=== PATIENT | female | born 1950 | race Caucasian/White ===

== ENCOUNTER 2022-02-22 18:07 | Inpatient (IN) | payer MEDICARE, SELFPAY ==
[2022-02-22] VITALS (10 sets, daily range): BP systolic 112–169; BP diastolic 57–79; PULSE 88–105; RESP 16–28; TEMP 36.9–38.9; O2SAT 92–95; BMI 28.8; BMI 29.0
--- NOTE | 2022-02-22 18:21 | CT_ITS ---
EXAM: CT HEAD WITHOUT INTRAVENOUS CONTRAST CLINICAL INDICATION: ams TECHNIQUE: Multiple axial images were obtained of the head without intravenous contrast. This CT exam was performed using one or more of the following dose reduction techniques: automated exposure control, adjustment of the mA and/or kV according to patient size, and/or use of iterative reconstruction technique. This report was created using [employer] report generation technology. COMPARISON: None. FINDINGS: BRAIN AND EXTRA-AXIAL SPACES: Unremarkable. No intra- or extra-axial hemorrhage. No evidence of acute infarct. No intracranial mass or mass effect. There is preservation of the kerns/white matter interface. Posterior fossa structures are unremarkable. Ventricles are appropriate for age. No hydrocephalus. Basal cisterns are patent. BONES/JOINTS: Unremarkable. No discrete lytic or blastic abnormalities. SINUSES: There is near total consolidation of the right maxillary sinus. MASTOID AIR CELLS: Unremarkable. Clear. ORBITS: Visualized globes, extraocular muscles, optic nerves and retrobulbar fat appear unremarkable. CT/Brain/Head without Contrast IMPRESSION: No acute findings in the head/brain. Electronically Signed: Loc Johnson MD at 19:50 EDT ,
--- NOTE | 2022-02-22 18:21 | EKG12_ITS ---
Test Reason : Fever Blood Pressure : / mmHG Vent. Rate : 105 BPM Atrial Rate : 105 BPM P-R Int : 158 ms QRS Dur : 098 ms QT Int : 330 ms P-R-T Axes : 055 053 038 degrees QTc Int : 436 ms Sinus tachycardia Otherwise normal ECG Confirmed by POLLO DONATO, ESTHER ([id number]), editor managing director ART MARES ([id number]) on 02/27/2022 11:10:11 AM Referred By: Tom Confirmed By:TASIA ABAD MD
--- NOTE | 2022-02-22 18:27 | EDS_ITS ---
HPI History of Present Illness Chief Complaint: Fever Informant: patient, family and EMS Narrative Narrative: 71-year-old female presenting to the emergency room with fever and confusion. Patient has had a fever since Sunday. She also notes a cough headache rhin orrhea sore throat. Family states that she seemed to be doing pretty good until today when they came home this afternoon and found her to be confused. Patient notes that she is not thinking well. She cannot provide much basic history but he states she has a history of cirrhosis diabetes and COPD. She notes her cough is nonproductive. She does not use supplemental oxygen. She has been taking Tylenol for fever but cannot tell me the last time she took 1. [facility] Medical History Asthma COPD (chronic obstructive pulmonary disease) Diabetes Hypertension Liver cirrhosis Allergy/AdvReac Type Severity Reaction Status Date / Time No Known Allergies Allergy Verified 02/22/22 18:08 Social History (Updated 02/22/22 @ 18:[address] Josse Santos DO) Smoking Status: Never smoker substance use type: does not use ROS ROS ED Constitutional Constitutional ED: Reports fever(s); Denies chills or weight loss Eyes Eyes: Denies change in vision or diplopia ENT ENT ED: Reports rhinorrhea and sore throat; Denies ear pain Cardiovascular Cardiovascular: Denies chest pain, orthopnea, palpitations or racing heartbeat Respiratory/Chest Respiratory/Chest: Reports cough and dyspnea; Denies orthopnea Gastrointestinal Gastrointestinal: Denies abdominal pain, diarrhea, nausea or vomiting Genitourinary Genitourinary ED: Denies dysuria, hematuria or urinary frequency Musculoskeletal Musculoskeletal: Denies arthralgias or myalgias Integumentary Denies abscess or rash Neurologic Neurologic: Reports headache(s) and other Details: Confusion ; Denies weakness Psychiatric Psychiatric: Denies anxiety, depression, suicidal ideation or suicidal thoughts Endocrine Endocrinology: Denies polydipsia, polyphagia or polyuria Allergic/Immunologic Allergic/Immunologic ED: Denies mouth swelling, tongue swelling or urticaria EXAM Physical Exam Const Vital Signs: 02/22/22 18:08 02/22/22 18:21 02/22/22 19:21 Temperature 102.0 F H Temperature Source Temporal Pulse Rate 105 H 104 H 95 Respiratory Rate 24 H 21 H 22 H Respiratory Effort Respiratory Pattern Blood Pressure 169/79 H 161/78 H 134/63 H Blood Pressure Mean 109 105 86 Pulse Ox 92 92 92 Oxygen Delivery Method Nasal Cannula Room Air Room Air 02/22/22 19:57 02/22/22 20:41 02/22/22 20:10 Temperature 99.7 F H 99.7 F H Temperature Source Oral Oral Pulse Rate 92 Respiratory Rate 16 Respiratory Effort Normal Non-Labored Respiratory Pattern Tachypnea Blood Pressure 121/57 H Blood Pressure Mean 78 Pulse Ox 95 Oxygen Delivery Method Room Air 02/22/22 20:00 02/22/22 21:01 Temperature Temperature Source Pulse Rate 97 91 Respiratory Rate 28 H Respiratory Effort Respiratory Pattern Blood Pressure 128/73 H Blood Pressure Mean 91 Pulse Ox 94 Oxygen Delivery Method Room Air Positive well nourished, well developed and obese General Appearance ED: well developed Nutritional Appearance: obese HEENT Reports normocephalic, head/scalp atraumatic and moist mucous membranes Eyes PERRL and EOMs intact bilaterally Neck no lymphadenopathy, supple and no JVD Resp normal respiratory effort and clear to auscultation bilaterally Cardio regular rate, regular rhythm and no murmurs GI normal to inspection, nondistended, normoactive bowel sounds and non-tender Palpation: soft Back/Spine no CVA tenderness and normal ROM Extremity normal to inspection General Extremety ED: Negative for edema General Extremity: Negative for edema Neuro CN's II-XII intact bilaterally Neuro Narrative: Patient has difficulty finding words. I do not appreciate slurred speech. Sensorium / Orientation: alert and orientation impaired Motor Exam: strength 5/5 throughout Psych Mood & Affect: Negative for depressed or tearful Skin no rashes or lesions noted and no wounds MDM MDM MDM Narrative Medical decision making narrative: Patient received IV fluids and Tylenol. Sepsis blood work was obtained. White count is 9.5. Lactic acid 1.4. CMP showed a slight elevation in bilirubin. Urinalysis is normal. Rapid COVID and influenza are negative. My interpretation of the chest x-ray is no acute process. CT of the brain is normal. A COVID PCR was sent. Patient received Tylenol and fluids. Fever is down heart rate is down blood pressure is down. I do not see evidence of meningitis. She has no photophobia. She is awake and talking but slow to find what she is trying to say. At this point we are going to wait a viral panel and a COVID PCR. I will speak with the hospitalist regarding admission Lab Data Attestation: I reviewed the patient's lab results. Labs: Laboratory Results - last 24 hr 02/22/22 02/22/22 02/22/22 18:21 18:36 18:36 WBC 9.5 RBC 4.27 Hgb 12.4 Hct 36.8 L MCV 86.2 MCH 29.0 MCHC 33.7 RDW Std Deviation 46.3 H RDW Coeff of Paco 14.8 H Plt Count 146 L MPV 12.3 H Immature Gran % (Auto) 0.600 Neut % (Auto) 69.3 Lymph % (Auto) 17.7 L [place] % (Auto) 11.8 H Eos % (Auto) 0.1 Baso % (Auto) 0.5 Absolute Neuts (auto) 6.6 Absolute Lymphs (auto) 1.68 Nucleated RBC % 0 PT 15.3 H INR 1.2 APTT 35.6 Sodium Potassium Chloride Carbon Dioxide Anion Gap BUN Creatinine Estim Creat Clear Calc Est GFR (MDRD) Af Amer Est GFR (MDRD) Non-Af BUN/Creatinine Ratio Glucose Lactic Acid 1.4 Calcium Total Bilirubin AST ALT Alkaline Phosphatase Troponin I High Sens Total Protein Albumin Globulin Albumin/Globulin Ratio Urine Color Urine Clarity Urine pH Ur Specific [place] Urine Protein Urine Glucose (UA) Urine Ketones Urine Occult Blood Urine Nitrite Urine Bilirubin Urine Urobilinogen Ur Leukocyte Esterase Urine RBC Urine WBC Ur Squamous Epith Cells Urine Bacteria Urine Mucus 02/22/22 02/22/22 18:36 19:50 WBC RBC Hgb Hct MCV MCH MCHC RDW Std Deviation RDW Coeff of Paco Plt Count MPV Immature Gran % (Auto) Neut % (Auto) Lymph % (Auto) [place] % (Auto) Eos % (Auto) Baso % (Auto) Absolute Neuts (auto) Absolute Lymphs (auto) Nucleated RBC % PT INR APTT Sodium 131 L Potassium 4.9 Chloride 99 Carbon Dioxide 25.0 Anion Gap 7 BUN 13 Creatinine 0.87 Estim Creat Clear Calc 42.60 Est GFR (MDRD) Af Amer 83 Est GFR (MDRD) Non-Af 68 BUN/Creatinine Ratio 15.0 Glucose 136 H Lactic Acid Calcium 9.4 Total Bilirubin 1.40 H AST 56 H ALT 42 Alkaline Phosphatase 113 Troponin I High Sens 21 Total Protein 8.5 H Albumin 3.3 Globulin 5.2 H Albumin/Globulin Ratio 0.6 L Urine Color [place] Urine Clarity Clear Urine pH 7.0 Ur Specific [place] 1.010 Urine Protein 100 H Urine Glucose (UA) Normal Urine Ketones Negative Urine Occult Blood 50 H Urine Nitrite Negative Urine Bilirubin Negative Urine Urobilinogen 4 H Ur Leukocyte Esterase Negative Urine RBC 0-5 SEEN Urine WBC 0 SEEN Ur Squamous Epith Cells 0 SEEN Urine Bacteria 0 SEEN Urine Mucus 0 SEEN Radiography Diagnostic Testing: Clinical Impression(s) from Imaging Studies Brain CT 02/22/22 18:21 IMPRESSION: No acute findings in the head/brain. Electronically Signed: Loc Johnson MD at 19:50 EDT , Chest X-Ray 02/22/22 19:00 IMPRESSION: No radiographic evidence of acute cardiopulmonary disease. Electronically Signed: Loc Johnson MD at 19:47 EDT , EKG Initial EKG: Attestation: I personally reviewed and interpreted this EKG as follows: Comments: Sinus tachycardia with a ventricular rate of 105 bpm Discharge Plan Dx/Rx/DC Orders Clinical Impression: Acute alteration in mental status, Fever of unknown origin (FUO), Cirrhosis of liver, COPD (chronic obstructive pulmonary disease) Disposition Disposition: Acute Care [facility]
[2022-02-22] MEDS: 0.9% Normal Saline 1,000 ML 250 ML IV (18:39)
[2022-02-22] MEDS: Acetaminophen 500 MG Tablet 1000 MG PO (18:39)
[2022-02-22 18:50] LABS: Absolute Lymphocyte Count 1.68 X10^3/uL (0.83-4.51); Absolute Neutrophil Count 6.6 X10^3/uL (2.0-7.7); Basophil# 0.05 X10^3/uL; Basophil% 0.5 % (0-1); Eosinophil# 0.01 X10^3/uL; Eosinophils% 0.1 % (0-5); Hematocrit 36.8 % (37-47); Hemoglobin 12.4 g/dL (12.0-15.0); Lymphocyte # 1.68 X10^3/ul (0.83-4.51); Lymphocyte % 17.7 % (19-41); Mean Corp Hgb Conc 33.7 g/dL (32-36); Mean Corpuscular Volume 86.2 fL (81-99); Mean Platelet Vol. 12.3 fl (6.2-12.0); Monocyte# 1.12 X10^3/uL; Monocyte% 11.8 % (0-10); NRBC Flagged by Analyzer 0 % (0-5); Neutrophil # 6.59 X10^3/uL (2.7-7.7); Neutrophil % 69.3 % (47-70); Platelet Count 146 K/mm3 (150-450); RBC Distribution Width CV 14.8 % (11.6-14.6); RBC Distribution Width SD 46.3 fl (35.1-43.9); Red Blood Count 4.27 M/mm3 (4.2-5.4); White Blood Count 9.5 K/mm3 (4.4-11.0)
[2022-02-22 18:57] LABS: International Normalized Ratio 1.2; Prothrombin Time (Protime)PT. 15.3 SECONDS (11.7-14.9)
[2022-02-22 18:59] LABS: Partial Thromboplast Time 35.6 Seconds (24.1-36.2)
--- NOTE | 2022-02-22 19:00 | RAD_ITS ---
EXAM: XR CHEST, 1 VIEW CLINICAL INDICATION: fever and cough TECHNIQUE: Frontal view of the chest. This report was created using [employer] report generation technology. COMPARISON: None. FINDINGS: LUNGS AND PLEURAL SPACES: Unremarkable. No consolidation or edema. No pneumothorax. No effusion. HEART: Unremarkable. Cardiac silhouette not enlarged. MEDIASTINUM: Central airways and mediastinal contour are unremarkable. BONES/JOINTS: Unremarkable. SOFT TISSUES: Unremarkable. RAD/Chest 1 View (Portable) IMPRESSION: No radiographic evidence of acute cardiopulmonary disease. Electronically Signed: Loc Johnson MD at 19:47 EDT ,
[2022-02-22 19:11] LABS: ALB/GLOB Ratio 0.6 RATIO (0.9-2.4); AST(SGOT) 56 U/L (15-37); Alanine Aminotransfer ALT/SGPT 42 U/L (13-56); Albumin, Serum 3.3 g/dL (3.2-5.0); Alkaline Phosphatase 113 U/L (45-117); Anion Gap 7 (5-15); BUN 13 mg/dL (7-18); Calcium,Total 9.4 mg/dL (8.5-10.1); Chloride 99 mmol/L (98-107); Creatinine, Serum 0.87 mg/dL (0.55-1.02); EST Glomerular Filtration Rate 68 mL/min (>60); Est Glom Filt Rate - Afr Amer 83 mL/min (>60); Globulin 5.2 g/dL (2.2-4.2); Glucose 136 mg/dL (74-106); Potassium 4.9 mmol/L (3.5-5.1); Protein, Total 8.5 g/dL (6.4-8.2); Sodium Level 131 mmol/L (136-145); Troponin-I HS 21 pg/mL (3.0-54.0)
[2022-02-22 19:22] LABS: Lactic Acid 1.4 mmol/L (0.4-1.9)
[2022-02-22 19:56] LABS: Bacteria 0 SEEN /hpf (None Seen); Mucous, Urine 0 SEEN /hpf (<or=2+); Squamous Epithelial Cells - UA 0 SEEN /hpf (5-10); White Blood Cells 0 SEEN /hpf (0-5)
[2022-02-22 19:58] LABS: Color, Urine Amber (Yellow); Glucose, Dipstick Normal (Normal); Ketone-Dipstick Negative (Negative); Leukocyte Esterase-Dipstick Negative /ul (Negative); Nitrite-Dipstick Negative (Negative); Occult Blood-Urine 50 /ul (Negative); Protein-Dipstick 100 mg/dl (Negative); Urine Bilirubin Dipstick Negative (Negative); Urine Clarity Clear (Clear); Urine Urobilinogen 4 mg/dl (Normal)
[2022-02-22 20:27] LABS: Red Blood Cells-Urine 0-5 SEEN /hpf (0-5)
--- NOTE | 2022-02-22 21:30 | HP.PCM.HOS_ITS ---
HPI - General General Date of Admission: 02/22/22 Date of Service: 02/22/22 Chief Complaint: Confusion, recent viral URI symptoms. HPI Narrative The patient is a 71 y/o F w/ PMHx: COPD, Former tobacco use, LUNA/Cirrhosis, HTN, HLD, Diabetes mellitus type II, Obesity who presents to the [facility] ED on 02/22/22 with history of onset on 02/17/2022 fatigue, malaise, decreased appetite, mild generalized throbbing headache, dry cough, rhinorrhea, sore throat and elevated temperatures at home up to 102 with onset over the last 48 hours increased episodes of confusion which family does report is primarily when she is febrile however given not improving status prompted ED evaluation. She denies any nausea, emesis or diarrhea or any abdominal cramping. She is not vaccinated against COVID and is unaware of any recent exposure but does not take any kind of precautions. Work-up in the ED included T102, heart rate 105, BP 169/79, respiratory rate 24, 92% on room air, CBC with WC 9.5, hemoglobin 12.4, platelet 146 without marked shift, unremarkable coags, CMP with sodium 131, glucose 136, lactic acid 1.4, T bili 1.40, AST/ALT 56/42, alk phos 113, ammonia 16, troponin 21, hepatic profile not marked appearing otherwise, urinalysis with no obvious evidence of UTI, urine culture pending per ED, blood culture pending per ED, rapid COVID antigen negative with pending COVID PCR. In the ED patient administered Tylenol. [facility] Medical History (Updated 02/22/22 @ 22:32 by Vishal Moser) Asthma COPD (chronic obstructive pulmonary disease) Diabetes Ex-smoker Hyperlipemia Hypertension Liver cirrhosis Home Medications atorvastatin 10 mg tablet 10 mg PO QHS cholesterol 02/22/22 [History Last Taken 02/21/22] carvedilol 25 mg tablet 25 mg PO BID blood pressure 02/22/22 [History Last Taken 02/22/22] cholecalciferol (vitamin D3) 50 mcg (2,000 unit) tablet (Vitamin D3) 1 tab PO DAILY supplement 02/22/22 [History Last Taken 02/22/22] diltiazem HCl 240 mg capsule,extended release 24 hr, controlled 240 mg PO DAILY heart 02/22/22 [History Last Taken 02/22/22] lisinopril 40 mg tablet 40 mg PO DAILY blood pressure 02/22/22 [History Last Taken 02/22/22] magnesium amino acid chelate 100 mg tablet 400 mg PO DAILY supplement 02/22/22 [History Last Taken 02/22/22] metformin 1,000 mg tablet 1,000 mg PO BID diabetes 02/22/22 [History Last Taken 02/22/22] omeprazole 20 mg capsule,delayed release 20 mg PO DAILY GERD 02/22/22 [History Last Taken 02/22/22] spironolactone 25 mg tablet 25 mg PO DAILY diuretic 02/22/22 [History Last Taken 02/22/22] Allergy/AdvReac Type Severity Reaction Status Date / Time Penicillins Allergy Hives Verified 02/22/22 22:21 prednisone Allergy Anaphylaxis Verified 02/22/22 22:21 Family History (Updated 02/22/22 @ 23:[address] Rabia Franklin MD) Mother Diabetes Father Heart disease Surgical History (Updated 02/22/22 @ 22:32 by Vishal Moser) Hx of tonsillectomy Social History (Updated 02/22/22 @ 23:[address] Rabia Franklin MD) household members: family and other details: Her son and her grandson live with her. Smoking Status: Former smoker how long ago did patient quit smoking: Quit at age 50, smoked ~ 1 ppd since teen until quit. alcohol intake: never substance use type: does not use ROS ROS Narrative Admission Review of Systems: CONSTITUTIONAL: No weight loss, chills, + fever, weakness or fatigue. HEENT: + [place], rhinorrhea, sore throat. Eyes: No visual loss, blurred vision, double vision or yellow sclerae. Ears, Nose, Throat: No hearing loss, sneezing. SKIN: No rash or itching, lesions, wounds. CARDIOVASCULAR: No chest pain, chest pressure or chest discomfort, palpitations, edema, orthopnea, syncopal events. RESPIRATORY: + Cough, dry, No shortness of breath, sputum, wheezing, hemoptysis. GASTROINTESTINAL: + anorexia, No nausea, vomiting or diarrhea, abdominal pain, melena, BRBPR. GENITOURINARY: No dysuria, frequency, urgency or retention. NEUROLOGICAL: + headache, confusion, No dizziness, syncope, paralysis, ataxia, numbness or tingling in the extremities, focal weakness, change in bowel or bladder control, seizure. MUSCULOSKELETAL: + muscle, back pain, joint pain or stiffness. HEMATOLOGIC: No anemia, bleeding or bruising. LYMPHATICS: No enlarged nodes. No history of splenectomy. PSYCHIATRIC: No history of depression or anxiety. ENDOCRINOLOGIC: + reports of sweating, cold or heat intolerance. No polyuria or polydipsia. ALLERGIES: + history of rhinitis. Vital Signs Vital Signs Vital Signs: 02/22/22 18:08 02/22/22 18:21 02/22/22 19:21 Temperature 102.0 F H Temperature Source Temporal Pulse Rate 105 H 104 H 95 Respiratory Rate 24 H 21 H 22 H Respiratory Effort Respiratory Pattern Blood Pressure 169/79 H 161/78 H 134/63 H Blood Pressure Mean 109 105 86 Pulse Ox 92 92 92 Oxygen Delivery Method Nasal Cannula Room Air Room Air 02/22/22 19:57 02/22/22 20:41 02/22/22 20:10 Temperature 99.7 F H 99.7 F H Temperature Source Oral Oral Pulse Rate 92 Respiratory Rate 16 Respiratory Effort Normal Non-Labored Respiratory Pattern Tachypnea Blood Pressure 121/57 H Blood Pressure Mean 78 Pulse Ox 95 Oxygen Delivery Method Room Air 02/22/22 20:00 02/22/22 21:01 Temperature Temperature Source Pulse Rate 97 91 Respiratory Rate 28 H Respiratory Effort Respiratory Pattern Blood Pressure 128/73 H Blood Pressure Mean 91 Pulse Ox 94 Oxygen Delivery Method Room Air Weight Weight: 147 lb 11.355 oz Body Mass Index (BMI) 28.8 Physical Exam Narrative Physical Examination: General: Awake, alert, oriented to person, place, president, eventually correct month and year but took a little longer to respond, fatigued, ill-appearing but in no distress. Skin: Normal color, normal turgor, no icterus, no cyanosis. HEENT: AT/NC, EOMI, PERRLA, dry MM, no carotid bruits or JVD noted. Lungs: Mildly diminished, greater bases, appropriate effort, no rales, ronchi or wheezing. Heart: Tachycardic with regular rhythm; no gallop, rub audible. Abdomen: Soft, NTTP, ND, distant mildly hyperactive BS, no HSM. Extremities: No cyanosis, clubbing, or edema. Neurological: Patient awake, alert, oriented as noted, cognitive function impr hany since initial ED arrival, now that fever down, less tachycardic family does report that she seems more towards her baseline intact; pupils equally reactive to light and accommodation, cranial nerves II-XII grossly normal, moving all 4 extremities, no focal deficits, strength mildly to moderately global decrease secondary to acute illness. Psychiatric: Affect appears fatigued, no acute evidence of depressive or anxiety feelings. Results Lab / Micro Data Result Diagrams: 02/22/22 18:36 02/22/22 18:36 Labs: Laboratory Results - last 24 hr 02/22/22 18:21: Lactic Acid 1.4 02/22/22 18:36: WBC 9.5, RBC 4.27, Hgb 12.4, Hct 36.8 L, MCV 86.2, MCH 29.0, MCHC 33.7, RDW Std Deviation 46.3 H, RDW Coeff of Paco 14.8 H, Plt Count 146 L, MPV 12.3 H, Immature Gran % (Auto) 0.600, Neut % (Auto) 69.3, Lymph % (Auto) 17.7 L, [place] % (Auto) 11.8 H, Eos % (Auto) 0.1, Baso % (Auto) 0.5, Absolute Neuts (auto) 6.6, Absolute Lymphs (auto) 1.68, Nucleated RBC % 0 02/22/22 18:36: PT 15.3 H, INR 1.2, APTT 35.6 02/22/22 18:36: Sodium 131 L, Potassium 4.9, Chloride 99, Carbon Dioxide 25.0, Anion Gap 7, BUN 13, Creatinine 0.87, Estim Creat Clear Calc 42.60, Est GFR (MDRD) Af Amer 83, Est GFR (MDRD) Non-Af 68, BUN/Creatinine Ratio 15.0, Glucose 136 H, Calcium 9.4, Total Bilirubin 1.40 H, AST 56 H, ALT 42, Alkaline Phosphatase 113, Troponin I High Sens 21, Total Protein 8.5 H, Albumin 3.3, Globulin 5.2 H, Albumin/Globulin Ratio 0.6 L 02/22/22 19:50: Urine Color Tatyana, Urine Clarity Clear, Urine pH 7.0, Ur Specific [place] 1.010, Urine Protein 100 H, Urine Glucose (UA) Normal, Urine Ketones Negative, Urine Occult Blood 50 H, Urine Nitrite Negative, Urine Bilirubin Negative, Urine Urobilinogen 4 H, Ur Leukocyte Esterase Negative, Urine RBC 0-5 SEEN, Urine WBC 0 SEEN, Ur Squamous Epith Cells 0 SEEN, Urine Bacteria 0 SEEN, Urine Mucus 0 SEEN Micro: Microbiology 02/22/22 19:50 Mucosa - Nose Influenza Types A,B Direct FA (SUNIL) - Final 02/22/22 18:45 Nasal Secretion SARS-CoV-2 Antigen (Rapid) - Final Radiology Impression Brain CT 02/22/22 18:21 IMPRESSION: No acute findings in the head/brain. Electronically Signed: Loc Johnson MD at 19:50 EDT , Chest X-Ray 02/22/22 19:00 IMPRESSION: No radiographic evidence of acute cardiopulmonary disease. Electronically Signed: Loc Johnson MD at 19:47 EDT , Assessment & Plan Assessment/Plan (1) Acute alteration in mental status: (2) Fever of unknown origin (FUO): PLAN: Plan The patient is a 71 y/o F w/ PMHx: COPD, Former tobacco use, LUNA/Cirrhosis, HTN, HLD, Diabetes mellitus type II, Obesity who presents to the [facility] ED on 02/22/22 with history of onset on 02/17/2022 fatigue, malaise, decreased appetite, mild generalized throbbing headache, dry cough, rhinorrhea, sore throat and elevated temperatures at home up to 102 with onset over the last 48 hours increased episodes of confusion which family does report is primarily when she is febrile however given not improving status prompted ED evaluation. #1. Acute encephalopathy secondary to acute viral syndrome, potentially COVID- 19: We will admit to medical surgical floor, maintain on fall precautions, await procalcitonin, request COVID PCR to be cautious, obtain respiratory full viral panel, blood culture x2 pending per ED, no obvious acute findings on chest x- ray, CT of the brain unremarkable and ammonia level normal, continue to just as hydration, will hold off on empiric antibiotic therapy pending these evaluations but low threshold to start if de-escalates. #2. 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 #3. Hypertension: Continue home regimen including spironolactone, lisinopril, diltiazem, Coreg with hold parameters as needed, PRN hydralazine. #4. Hyperlipidemia: Continue home statin regimen. #5. Chronic COPD: Will maintain on oxygen with wean as tolerated to room air, not on any chronic inhalers, PRN albuterol, HOB, IS parameters. May add ATC DuoNeb therapies as needed. #6. Diabetes mellitus type II: Hold oral home regimen, ADA diet, accu checks w/ ISS. #7. Obesity: Weight loss and lifestyle changes encouraged. #8. Former tobacco use: Encourage continued tobacco cessation. #9. DVT prophylaxis: SCDs, Lovenox. #10. CODE status: Patient ELLA is her sons who are present and living will is currently in place. Discussed CODE status at length including difference between FULL code, DNR-CCA and DNR-CC status. Following discussions about the differen ruthy in these status, requested very specifically DNR CCA, no intubation status which was confirmed given age is not significantly advanced. Advanced Care Planning Face to Face Time: 16 minutes. Charges/Coding Visit Charges OBSV E&M: 47657 Initial observation care L3 Procedures Hospitalists Procedures: [id number] Advncd Care Plan 30 Min
[2022-02-22 22:07] LABS: Procalcitonin 0.81 ng/mL (0.00-0.09)
[2022-02-22] MEDS: 0.9% Normal Saline 1,000 ML 100 ML IV (23:30)
[2022-02-23] VITALS (14 sets, daily range): BP systolic 100–157; BP diastolic 50–74; PULSE 69–102; RESP 18–29; TEMP 37.2–39.9; O2SAT 91–99
[2022-02-23 00:25] LABS: Bedside Glucose 123 mg/dL (74-106)
[2022-02-23] MEDS: Acetaminophen 325 MG Tablet 650 MG PO ×3 (04:25→16:32)
[2022-02-23 06:37] LABS: Absolute Lymphocyte Count 1.24 X10^3/uL (0.83-4.51); Absolute Neutrophil Count 4.6 X10^3/uL (2.0-7.7); Basophil# 0.04 X10^3/uL; Basophil% 0.6 % (0-1); Eosinophil# 0.01 X10^3/uL; Eosinophils% 0.1 % (0-5); Hematocrit 33.5 % (37-47); Hemoglobin 11.2 g/dL (12.0-15.0); Lymphocyte # 1.24 X10^3/ul (0.83-4.51); Lymphocyte % 18.2 % (19-41); Mean Corp Hgb Conc 33.4 g/dL (32-36); Mean Corpuscular Hgb 28.9 pg (27.0-32.0); Mean Corpuscular Volume 86.3 fL (81-99); Mean Platelet Vol. 10.2 fl (6.2-12.0); Monocyte# 0.97 X10^3/uL; Monocyte% 14.2 % (0-10); NRBC Flagged by Analyzer 0 % (0-5); Neutrophil # 4.55 X10^3/uL (2.7-7.7); Neutrophil % 66.6 % (47-70); Platelet Count 110 K/mm3 (150-450); RBC Distribution Width CV 14.6 % (11.6-14.6); RBC Distribution Width SD 46.5 fl (35.1-43.9); Red Blood Count 3.88 M/mm3 (4.2-5.4); White Blood Count 6.8 K/mm3 (4.4-11.0)
[2022-02-23 07:06] LABS: Bedside Glucose 120 mg/dL (74-106)
[2022-02-23 07:25] LABS: ALB/GLOB Ratio 0.6 RATIO (0.9-2.4); AST(SGOT) 29 U/L (15-37); Alanine Aminotransfer ALT/SGPT 34 U/L (13-56); Albumin, Serum 2.8 g/dL (3.2-5.0); Alkaline Phosphatase 99 U/L (45-117); Anion Gap 8 (5-15); BUN 11 mg/dL (7-18); BUN/Creat Ratio 16.9 RATIO (10-20); Calcium,Total 8.8 mg/dL (8.5-10.1); Chloride 101 mmol/L (98-107); Creatinine, Serum 0.65 mg/dL (0.55-1.02); EST Glomerular Filtration Rate 95 mL/min (>60); Est Glom Filt Rate - Afr Amer 115 mL/min (>60); Estimated Creatinine Clearance 53.19 ml/min; Globulin 4.4 g/dL (2.2-4.2); Glucose 127 mg/dL (74-106); Potassium 3.3 mmol/L (3.5-5.1); Protein, Total 7.2 g/dL (6.4-8.2); Sodium Level 132 mmol/L (136-145)
--- NOTE | 2022-02-23 08:12 | PN.HOSP_ITS ---
Subjective Subjective Follow-up with a fever, fever of unknown origin Objective Data Objective Data Vital Signs: Vital Signs Temp Pulse Resp BP Pulse Ox O2 Del Method 99.1 F 84 18 134/57 H 95 Room Air 02/23/22 06:30 02/23/22 06:30 02/23/22 06:30 02/23/22 06:30 02/23/22 06:30 02/23/22 07:31 Oxygen Delivery Method Room Air Weight: 143 lb 15.39 oz Body Mass Index (BMI) 29.0 Intake & Output: Intake and Output for Last 24 Hours 02/21/22 02/22/22 02/23/22 23:59 23:59 23:59 Intake Total 1000 / 1000 Balance 1000 / 1000 Lab / Micro Data Result Diagrams: 02/23/22 06:25 02/23/22 06:25 Labs: Laboratory Results - last 24 hr 02/22/22 18:21: Lactic Acid 1.4 02/22/22 18:36: WBC 9.5, RBC 4.27, Hgb 12.4, Hct 36.8 L, MCV 86.2, MCH 29.0, MCHC 33.7, RDW Std Deviation 46.3 H, RDW Coeff of Paco 14.8 H, Plt Count 146 L, MPV 12.3 H, Immature Gran % (Auto) 0.600, Neut % (Auto) 69.3, Lymph % (Auto) 17.7 L, [place] % (Auto) 11.8 H, Eos % (Auto) 0.1, Baso % (Auto) 0.5, Absolute Neuts (auto) 6.6, Absolute Lymphs (auto) 1.68, Nucleated RBC % 0 02/22/22 18:36: PT 15.3 H, INR 1.2, APTT 35.6 02/22/22 18:36: Sodium 131 L, Potassium 4.9, Chloride 99, Carbon Dioxide 25.0, Anion Gap 7, BUN 13, Creatinine 0.87, Estim Creat Clear Calc 42.60, Est GFR (MDRD) Af Amer 83, Est GFR (MDRD) Non-Af 68, BUN/Creatinine Ratio 15.0, Glucose 136 H, Calcium 9.4, Total Bilirubin 1.40 H, AST 56 H, ALT 42, Alkaline Phosphatase 113, Troponin I High Sens 21, Total Protein 8.5 H, Albumin 3.3, Globulin 5.2 H, Albumin/Globulin Ratio 0.6 L 02/22/22 19:50: Urine Color Tatyana, Urine Clarity Clear, Urine pH 7.0, Ur Specific [place] 1.010, Urine Protein 100 H, Urine Glucose (UA) Normal, Urine Ketones Negative, Urine Occult Blood 50 H, Urine Nitrite Negative, Urine Bilirubin Negative, Urine Urobilinogen 4 H, Ur Leukocyte Esterase Negative, Urine RBC 0-5 SEEN, Urine WBC 0 SEEN, Ur Squamous Epith Cells 0 SEEN, Urine Bacteria 0 SEEN, Urine Mucus 0 SEEN 02/22/22 21:29: Ammonia 16.0 02/22/22 21:29: Procalcitonin 0.81 H 02/22/22 21:57: COVID-19 (SAYDA) Not Detected 02/22/22 23:29: POC Glucose 123 H 02/23/22 06:25: WBC 6.8, RBC 3.88 L, Hgb 11.2 L, Hct 33.5 L, MCV 86.3, MCH 28.9, MCHC 33.4, RDW Std Deviation 46.5 H, RDW Coeff of Paco 14.6, Plt Count 110 L, MPV 10.2, Immature Gran % (Auto) 0.300, Neut % (Auto) 66.6, Lymph % (Auto) 18.2 L, [place] % (Auto) 14.2 H, Eos % (Auto) 0.1, Baso % (Auto) 0.6, Absolute Neuts (auto) 4.6, Absolute Lymphs (auto) 1.24, Nucleated RBC % 0 02/23/22 06:25: Sodium 132 L, Potassium 3.3 L, Chloride 101, Carbon Dioxide 23.0, Anion Gap 8, BUN 11, Creatinine 0.65, Estim Creat Clear Calc 53.19, Est GFR (MDRD) Af Amer 115, Est GFR (MDRD) Non-Af 95, BUN/Creatinine Ratio 16.9, Glucose 127 H, Calcium 8.8, Total Bilirubin 1.20 H, AST 29, ALT 34, Alkaline Phosphatase 99, Total Protein 7.2, Albumin 2.8 L, Globulin 4.4 H, Albumin/Globulin Ratio 0.6 L 02/23/22 06:35: POC Glucose 120 H Micro: Microbiology 02/22/22 19:50 Urine Catheter - Catheter Streptococcus pneumoniae Antigen (M - Final 02/22/22 21:57 Mucosa - Nose Respiratory Panel (PCR) - Final 02/22/22 19:50 Urine Catheter - Catheter Legionella Antigen - Final 02/22/22 19:50 Mucosa - Nose Influenza Types A,B Direct FA (SUNIL) - Final 02/22/22 18:45 Nasal Secretion SARS-CoV-2 Antigen (Rapid) - Final Radiography Diagnostic Testing: Radiology Impression Brain CT 02/22/22 18:21 IMPRESSION: No acute findings in the head/brain. Electronically Signed: Loc Johnson MD at 19:50 EDT , Chest X-Ray 02/22/22 19:00 IMPRESSION: No radiographic evidence of acute cardiopulmonary disease. Electronically Signed: Loc Johnson MD at 19:47 EDT , Physical Exam Narrative Patient has fever and confusion since last Sunday. Patient also has clear rhinorrhea, sore throat. COVID-19 rapid antigen PCR, respiratory panel, flu antigen and urinary antigens for Legionella and Streptococcus are negative. UA negative. Chest x-ray no acute evidence of pneumonia History of COPD and he states she has chronic cough there is no change in severity characteristic color in sputum production. Patient has mild shortness of breath but states this is normal breathing she denies labored breathing. Physical exam General: Intermittent confusion. Disoriented to time and place HEENT: Atraumatic, PERRLA, EOMI, Normocephalic Oral: No Gingival or Mucosal Lesions/ Ulcerations Neck: Supple, No JVD, Negative Carotid Bruits Lungs: Air entry diminished in bilateral lung bases. No crepitation/rhonchi. No hypoxia Cardiovascular: Regular rate, Regular Rhythm, Normal S1, Normal S2, No murmurs Abdomen: Bowel Sounds Present, Soft, Non Tender, Non-Distended : No renal angle tenderness. No suprapubic tenderness. Extremities: No edema, Capillary Refill Less than 3 Seconds Skin: No rashes, No breakdown Musculoskeletal: No Tenderness to Palpation of Joints or Extremities Neurological: No neck rigidity. Cranial nerves II-XII grossly intact, DTR 2+/4 and Symmetrical, Neuro grossly intact Psych/Mental Status: Flat affect. Assessment & Plan Assessment/Plan (1) Acute alteration in mental status: (2) Fever of unknown origin (FUO): PLAN: Plan The patient is a 71 y/o F admitted with 5 days of fever since 02/18/2020, with intermittent confusion and disorientation. #1. Acute encephalopathy secondary to acute viral syndrome, potentially COVID- 19 infection: Patient is admitted on [facility]. Evaluated by ID. Impression is atypical presentation of COVID-19 although rapid antigen PCR, respiratory panel and urinary antigens are negative. Started on IV remdesivir. Patient also spiked fever in the afternoon about 103 but no proportional increase in heart rate. Patient not hypoxic or tachypneic. Chest x-ray and CT brain does not show acute change. Patient does not have burning micturition/dysuria or UTI. No abdominal pain, nausea vomiting diarrhea or GI bleed. No neck rigidity. #2. 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 Hypertension: Continue home regimen including spironolactone, lisinopril, diltiazem, Coreg with hold parameters as needed, PRN hydralazine. #4. Hyperlipidemia: Continue home statin regimen. #5. COPD: No change in cough characteristic of sputum production. Not in exacerbation. Bronchodilator as needed. #6. Diabetes mellitus type II: Hold oral home regimen, ADA diet, Accu-Cheks before meals and at bedtime coverage below sliding scale. #7. Obesity: Weight loss and lifestyle changes encouraged. #8. Former tobacco use: Encourage continued tobacco cessation. #9. DVT prophylaxis: SCDs, Lovenox. #10. CODE status: Patient ELLA is her sons who are present and living will is currently in place. Discussed CODE status at length including difference between FULL code, DNR-CCA and DNR-CC status. Following discussions about the differences in these status, requested very specifically DNR CCA, no intubation status which was confirmed Charges/Coding Visit Charges Inpatient E&M: 11900 Subs Hosp L2
[2022-02-23] MEDS: Pantoprazole Sodium 20 MG Tablet PO (09:49)
[2022-02-23] MEDS: Enoxaparin 40 MG/0.4 ML Syringe SC (09:50)
[2022-02-23] MEDS: dilTIAZem CD 240 MG Capsule PO (09:50)
[2022-02-23] MEDS: Lisinopril 40 MG Tablet PO (09:50)
[2022-02-23] MEDS: Carvedilol 25 MG Tablet PO ×2 (09:50→16:32)
[2022-02-23] MEDS: Spironolactone 25 MG Tablet PO (09:50)
--- NOTE | 2022-02-23 10:35 | PCM.CONS.GEN ---
Assessment & Plan Assessment/Plan (1) Suspected COVID-19 virus infection: PLAN: With fever, headache, cough, and loss of taste, suspect covid infection even with negative testing. Will re-order isolation. Sx started 02/15. Unvaccinated. Encouraged her to get the vaccine in a few weeks. Recommended family at home get tested. IgA and IgG pending here, would recommend IgM to best identify recent infection. With sats of 92-96% here, will give remdesivir and dex. Will follow, thank you, d/w Dr. Monsalve HPI Consult Data Date of Consult: 02/23/22 HPI Narrative Reason for Consultation: fever HPI Narrative: KATARZYNA BERGER, is a 71 F who presented yesterday with sx starting 02/15. C/o fever, dry cough, headache, fatigue, sore throat, congestion, loss of taste. Unvaccinated for covid, no sick contacts. Lives with son and grandson. Had some confusion, taken to ED. Covid pcr neg. Full ROS performed and neg except as noted above. No abd pain, no dysuria. No aches. [facility] Medical History Asthma COPD (chronic obstructive pulmonary disease) Diabetes Ex-smoker Hyperlipemia Hypertension Liver cirrhosis Home Medications atorvastatin 10 mg tablet 10 mg PO QHS cholesterol 02/22/22 [History Last Taken 02/21/22] carvedilol 25 mg tablet 25 mg PO BID blood pressure 02/22/22 [History Last Taken 02/22/22] cholecalciferol (vitamin D3) 50 mcg (2,000 unit) tablet (Vitamin D3) 1 tab PO DAILY supplement 02/22/22 [History Last Taken 02/22/22] diltiazem HCl 240 mg capsule,extended release 24 hr, controlled 240 mg PO DAILY heart 02/22/22 [History Last Taken 02/22/22] lisinopril 40 mg tablet 40 mg PO DAILY blood pressure 02/22/22 [History Last Taken 02/22/22] magnesium amino acid chelate 100 mg tablet 400 mg PO DAILY supplement 02/22/22 [History Last Taken 02/22/22] metformin 1,000 mg tablet 1,000 mg PO BID diabetes 02/22/22 [History Last Taken 02/22/22] omeprazole 20 mg capsule,delayed release 20 mg PO DAILY GERD 02/22/22 [History Last Taken 02/22/22] spironolactone 25 mg tablet 25 mg PO DAILY diuretic 02/22/22 [History Last Taken 02/22/22] Allergy/AdvReac Type Severity Reaction Status Date / Time Penicillins Allergy Hives Verified 02/22/22 22:21 prednisone Allergy Anaphylaxis Verified 02/22/22 22:21 Family History (Updated 02/22/22 @ 23:[address] Rabia Franklin MD) Mother Diabetes Father Heart disease Surgical History (Updated 02/22/22 @ 22:32 by Vishal Moser) Hx of tonsillectomy Social History (Updated 02/22/22 @ 23:[address] Rabia Franklin MD) household members: family and other details: Her son and her grandson live with her. Smoking Status: Former smoker how long ago did patient quit smoking: Quit at age 50, smoked ~ 1 ppd since teen until quit. alcohol intake: never substance use type: does not use Physical Exam Const alert, oriented x3 and no apparent distress General Appearance: cooperative HEENT normocephalic and head/scalp atraumatic Eyes PERRL and EOMs intact bilaterally Neck supple and No nodes Resp clear to auscultation bilaterally Resp Narrative: mildly diminished Cardio regular rate and regular rhythm GI soft to palpation, non-tender and non-distended Extremity no clubbing, cyanosis or edema Skin no rashes or lesions noted Neuro CN's II-XII intact bilaterally Lab / Micro Data Attestation: I reviewed the patient's lab results. Result Diagrams: 02/23/22 06:25 02/23/22 06:25 Labs: Laboratory Results - last 24 hr 02/22/22 18:21: Lactic Acid 1.4 02/22/22 18:36: WBC 9.5, RBC 4.27, Hgb 12.4, Hct 36.8 L, MCV 86.2, MCH 29.0, MCHC 33.7, RDW Std Deviation 46.3 H, RDW Coeff of Paco 14.8 H, Plt Count 146 L, MPV 12.3 H, Immature Gran % (Auto) 0.600, Neut % (Auto) 69.3, Lymph % (Auto) 17.7 L, [place] % (Auto) 11.8 H, Eos % (Auto) 0.1, Baso % (Auto) 0.5, Absolute Neuts (auto) 6.6, Absolute Lymphs (auto) 1.68, Nucleated RBC % 0 02/22/22 18:36: PT 15.3 H, INR 1.2, APTT 35.6 02/22/22 18:36: Sodium 131 L, Potassium 4.9, Chloride 99, Carbon Dioxide 25.0, Anion Gap 7, BUN 13, Creatinine 0.87, Estim Creat Clear Calc 42.60, Est GFR (MDRD) Af Amer 83, Est GFR (MDRD) Non-Af 68, BUN/Creatinine Ratio 15.0, Glucose 136 H, Calcium 9.4, Total Bilirubin 1.40 H, AST 56 H, ALT 42, Alkaline Phosphatase 113, Troponin I High Sens 21, Total Protein 8.5 H, Albumin 3.3, Globulin 5.2 H, Albumin/Globulin Ratio 0.6 L 02/22/22 19:50: Urine Color Tatyana, Urine Clarity Clear, Urine pH 7.0, Ur Specific [place] 1.010, Urine Protein 100 H, Urine Glucose (UA) Normal, Urine Ketones Negative, Urine Occult Blood 50 H, Urine Nitrite Negative, Urine Bilirubin Negative, Urine Urobilinogen 4 H, Ur Leukocyte Esterase Negative, Urine RBC 0-5 SEEN, Urine WBC 0 SEEN, Ur Squamous Epith Cells 0 SEEN, Urine Bacteria 0 SEEN, Urine Mucus 0 SEEN 02/22/22 21:29: Ammonia 16.0 02/22/22 21:29: Procalcitonin 0.81 H 02/22/22 21:57: COVID-19 (SAYDA) Not Detected 02/22/22 23:29: POC Glucose 123 H 02/23/22 06:25: WBC 6.8, RBC 3.88 L, Hgb 11.2 L, Hct 33.5 L, MCV 86.3, MCH 28.9, MCHC 33.4, RDW Std Deviation 46.5 H, RDW Coeff of Paco 14.6, Plt Count 110 L, MPV 10.2, Immature Gran % (Auto) 0.300, Neut % (Auto) 66.6, Lymph % (Auto) 18.2 L, [place] % (Auto) 14.2 H, Eos % (Auto) 0.1, Baso % (Auto) 0.6, Absolute Neuts (auto) 4.6, Absolute Lymphs (auto) 1.24, Nucleated RBC % 0 02/23/22 06:25: Sodium 132 L, Potassium 3.3 L, Chloride 101, Carbon Dioxide 23.0, Anion Gap 8, BUN 11, Creatinine 0.65, Estim Creat Clear Calc 53.19, Est GFR (MDRD) Af Amer 115, Est GFR (MDRD) Non-Af 95, BUN/Creatinine Ratio 16.9, Glucose 127 H, Calcium 8.8, Total Bilirubin 1.20 H, AST 29, ALT 34, Alkaline Phosphatase 99, Total Protein 7.2, Albumin 2.8 L, Globulin 4.4 H, Albumin/Globulin Ratio 0.6 L 02/23/22 06:35: POC Glucose 120 H Micro: Microbiology 02/22/22 19:50 Urine Catheter - Catheter Streptococcus pneumoniae Antigen (M - Final 02/22/22 21:57 Mucosa - Nose Respiratory Panel (PCR) - Final 02/22/22 19:50 Urine Catheter - Catheter Legionella Antigen - Final 02/22/22 19:50 Mucosa - Nose Influenza Types A,B Direct FA (SUNIL) - Final 02/22/22 18:45 Nasal Secretion SARS-CoV-2 Antigen (Rapid) - Final Radiology Impression Brain CT 02/22/22 18:21 IMPRESSION: No acute findings in the head/brain. Electronically Signed: Loc Johnson MD at 19:50 EDT , Chest X-Ray 02/22/22 19:00 IMPRESSION: No radiographic evidence of acute cardiopulmonary disease. Electronically Signed: Loc Johnson MD at 19:47 EDT ,
--- NOTE | 2022-02-23 12:42 | VDLE_ITS ---
Reason For Study: Pain RIGHT LEFT GSV is normal. GSV is normal. CFV, FV and PopV are compressible. CFV, FV and PopV are compressible. T/P Trunk is compressible. T/P Trunk is compressible. PTV is compressible. PTV is compressible. RT PerV is compressible. LT PerV is compressible. Procedure This is a venous duplex using B-mode, color flow and spectral Doppler. Exam performed portable in patient room. The exam was abbreviated due to the COVID 19 protocol. A preliminary report was called and/or faxed to [facility]. VL/Venous Duplex US - Thiago Extrem Interpretation Summary Deep veins of the right lower extremity are patent and compressible segmentally . There is no evidence of right lower extremity deep vein thrombosis. The right great sapheno us vein appears patent and compressible segmentally. Deep veins of the left lower extremity are patent and compressible segmentally. There is no evidence of left lower extremity deep vein thrombosis. The left great saphenous vein letha ears patent and compressible segmentally. Ordering Physician: Krishan Monsalve Referring Physician: Kristie aRgsdale M.D. Performed By: Kerry Lucero RVT
[2022-02-23] MEDS: 0.9% Saline Lock 10 ML Syringe IV (13:04)
[2022-02-23] MEDS: Insulin Lispro 100 UNIT/ML INSULN.PEN SC ×2 (13:04→20:56)
[2022-02-23 13:29] LABS: D-Dimer Quantitative (DVT/PE) 3.56 FEU/ug/m (0.27-0.49)
--- NOTE | 2022-02-23 13:54 | CASEMGMT ---
CHRIS CHILDERS Assessment: Face to Face with pt for initial transition planning/care coordination assessment. CHRIS CHILDERS introduced self and role at [facility], pt voices understanding and consents to assessment. Pt is A/O x3 and answers all questions appropriately at this time. Pt son, Kyler present in room. Pt on RA in no distress. Care providers, pharmacy, and demographics verified/updated. Admitting Dx: acute encephalopathy, FUO PCP:Melyssa Specialists:Pt denies. Preferred Pharmacy: [facility] Insurance: [place] [facility] Prescription Benefit: yes LW/HPOA: Pt states she has a LW/DPOA and her two sons are equally shared for DPOA. Pt is aware that this is not on file at [facility] and she may bring in to be scanned into her chart. LNOK: Kyler Nieves, son; Junior Nieves, son Living Arrangements: Pt lives with her son, Junior and her grandson in a single story house with 2 steps to enter without a rail. Pt reports typically she is I in ADL's and denies concerns at home. Transportation: Pt drives self and denies concerns with transportation. DME/HHC/SNF: Pt has an electric scooter in the home but does not use. She also has grab bars in the shower. Pt denies hx of HHC or SNF stays. Pt states no concerns with going home at time of dc. Pt states no further concerns/needs. CM to follow. Advised pt to ask CM if any further question/concerns/needs arise, voices understanding. Pt Goal: Home Plan: Home
--- NOTE | 2022-02-23 14:20 | CT_ITS ---
STUDY: CTA CHEST REASON FOR EXAM: Female, 71 years old. PE RADIATION DOSAGE (If Supplied By Facility): CTDIvol = ( 12.96 ) mGy, DLP = ( 389.58 ) mGycm TECHNIQUE: The examination was performed with the intravenous administration of IV 100mL Isovue-370. Post-processing of the angiographic images was performed, with multiplanar reformation and 3D reconstruction. Individualized dose optimization techniques were used for this CT. COMPARISON: None. FINDINGS: Normal enhancement of the main pulmonary artery and right and left pulmonary arteries. Normal enhancement of the bilateral peripheral pulmonary arteries. There is no demonstrated pulmonary embolism. There is atherosclerotic calcification of the aortic arch with tortuosity. There is no demonstrated aortic dissection. There are calcifications of the coronary arteries. Normal mediastinum. Normal hilar regions. Normal visualized trachea and bronchi. The lungs are well expanded. Left lower lobe infiltrate with minimal left pleural effusion. Normal pleura. Normal chest wall structures. There are degenerative changes of thoracic spine. Hepatosplenomegaly. There is a 2.1 cm hypodense nodule in the left adrenal gland suggestive of a adenoma. CT/CTA Chest W/WO Contrast IMPRESSION: Left lower lobe infiltrate with minimal left pleural effusion. Hepatosplenomegaly. Findings suggestive of a small adenoma in the left adrenal gland. No evidence of pulmonary embolism. Electronically Signed: Dayday Macias MD at 14:57 EDT ,
[2022-02-23 14:55] LABS: Bedside Glucose 177 mg/dL (74-106)
[2022-02-23] MEDS: 0.9% Normal Saline 1,000 ML 50 ML IV (14:58)
[2022-02-23 16:40] LABS: Bedside Glucose 149 mg/dL (74-106)
[2022-02-23] MEDS: Atorvastatin Calcium 10 MG Tablet PO (20:56)
[2022-02-24] VITALS (11 sets, daily range): BP systolic 94–128; BP diastolic 46–63; PULSE 56–95; RESP 17–34; TEMP 36.7–40.1; O2SAT 92–100
[2022-02-24] MEDS: Acetaminophen 325 MG Tablet 650 MG PO ×3 (02:09→15:09)
[2022-02-24] MEDS: Albuterol 2.5 MG/3 ML VIAL.NEB. INHALATION (02:34)
[2022-02-24 05:58] LABS: Hematocrit 33.1 % (37-47); Hemoglobin 10.8 g/dL (12.0-15.0); Mean Corp Hgb Conc 32.6 g/dL (32-36); Mean Corpuscular Hgb 28.1 pg (27.0-32.0); Mean Corpuscular Volume 86.2 fL (81-99); Mean Platelet Vol. 11.2 fl (6.2-12.0); Platelet Count 104 K/mm3 (150-450); RBC Distribution Width SD 47.5 fl (35.1-43.9); Red Blood Count 3.84 M/mm3 (4.2-5.4); White Blood Count 5.9 K/mm3 (4.4-11.0)
[2022-02-24 06:28] LABS: ALB/GLOB Ratio 0.6 RATIO (0.9-2.4); AST(SGOT) 39 U/L (15-37); Alanine Aminotransfer ALT/SGPT 37 U/L (13-56); Albumin, Serum 2.6 g/dL (3.2-5.0); Alkaline Phosphatase 96 U/L (45-117); Anion Gap 8 (5-15); BUN 17 mg/dL (7-18); Calcium,Total 8.6 mg/dL (8.5-10.1); Chloride 102 mmol/L (98-107); Creatinine, Serum 0.81 mg/dL (0.55-1.02); EST Glomerular Filtration Rate 74 mL/min (>60); Est Glom Filt Rate - Afr Amer 90 mL/min (>60); Estimated Creatinine Clearance 65.67 ml/min; Globulin 4.3 g/dL (2.2-4.2); Glucose 97 mg/dL (74-106); Potassium 3.4 mmol/L (3.5-5.1); Protein, Total 6.9 g/dL (6.4-8.2); Sodium Level 133 mmol/L (136-145)
[2022-02-24 07:10] LABS: Bedside Glucose 151 mg/dL (74-106)
[2022-02-24 07:10] LABS: Bedside Glucose 86 mg/dL (74-106)
[2022-02-24 08:04] LABS: BNP,B-Type NATRIURETIC PEPTIDE 183.9 pg/mL (0-100)
[2022-02-24] MEDS: Enoxaparin 40 MG/0.4 ML Syringe SC (10:36)
[2022-02-24] MEDS: Carvedilol 25 MG Tablet PO (10:37)
[2022-02-24] MEDS: Spironolactone 25 MG Tablet PO (10:37)
[2022-02-24] MEDS: dilTIAZem CD 240 MG Capsule PO (10:37)
[2022-02-24] MEDS: Pantoprazole Sodium 20 MG Tablet PO (10:37)
[2022-02-24] MEDS: Insulin Lispro 100 UNIT/ML INSULN.PEN SC ×2 (12:28→21:31)
[2022-02-24 13:10] LABS: Bedside Glucose 150 mg/dL (74-106)
--- NOTE | 2022-02-24 14:05 | PCM.PN.ID ---
Physical Exam Narrative Feeling a little better, still some cough, dyspnea. Const alert and no apparent distress Resp Auscultation: diminished lung sounds Cardio regular rate and regular rhythm GI soft to palpation, non-tender and non-distended Skin no rashes or lesions noted ID ID: Route of nutrition/ use of supplements: [] Nutritional Intake: [] IV Site: [] Roper Catheter: [] Assessment & Plan Assessment/Plan (1) Suspected COVID-19 virus infection: PLAN: With fever, headache, cough, and loss of taste, suspect covid infection even with negative testing. Cont isolation. Sx started 02/15. Unvaccinated. Encouraged her to get the vaccine in a few weeks. Recommended family at home get tested. IgA and IgG pending here, would recommend IgM to best identify recent infection. With sats of 92-96% here, 02/23 started remdesivir and dex. CT showed no PE. Will follow
--- NOTE | 2022-02-24 15:09 | CASEMGMT ---
Noted no therapy recommended per PT.
--- NOTE | 2022-02-24 15:20 | PCM.PN.HOSP ---
Subjective Subjective Follow-up for fever, most likely viral infection. Objective Data Objective Data Vital Signs: Vital Signs Temp Pulse Resp BP Pulse Ox O2 Del Method 104.1 F H 83 24 H 120/56 L 95 Room Air 02/24/22 15:06 02/24/22 15:06 02/24/22 15:06 02/24/22 15:06 02/24/22 15:06 02/24/22 15:06 Oxygen Delivery Method Room Air Weight: 147 lb 7.828 oz Body Mass Index (BMI) 29.0 Intake & Output: Intake and Output for Last 24 Hours 02/22/22 02/23/22 02/24/22 23:59 23:59 23:59 Intake Total 1000 / 1000 1550.50 / 1550.50 1243.33 / 1243.33 Balance 1000 / 1000 1550.50 / 1550.50 1243.33 / 1243.33 Lab / Micro Data Result Diagrams: 02/24/22 05:30 02/24/22 05:30 Labs: Laboratory Results - last 24 hr 02/23/22 16:14: POC Glucose 149 H 02/23/22 20:55: POC Glucose 151 H 02/24/22 05:30: WBC 5.9, RBC 3.84 L, Hgb 10.8 L, Hct 33.1 L, MCV 86.2, MCH 28.1, MCHC 32.6, RDW Std Deviation 47.5 H, RDW Coeff of Paco 15.0 H, Plt Count 104 L, MPV 11.2 02/24/22 05:30: Sodium 133 L, Potassium 3.4 L, Chloride 102, Carbon Dioxide 23.0, Anion Gap 8, BUN 17, Creatinine 0.81, Estim Creat Clear Calc 65.67, Est GFR (MDRD) Af Amer 90, Est GFR (MDRD) Non-Af 74, BUN/Creatinine Ratio 21.0 H, Glucose 97, Calcium 8.6, Total Bilirubin 0.90, AST 39 H, ALT 37, Alkaline Phosphatase 96, Total Protein 6.9, Albumin 2.6 L, Globulin 4.3 H, Albumin/Globulin Ratio 0.6 L 02/24/22 05:30: D-Dimer Quant (PE/DVT) 2.90 H* 02/24/22 05:30: B-Natriuretic Peptide 183.9 H 02/24/22 06:30: POC Glucose 86 02/24/22 12:27: POC Glucose 150 H Micro: Microbiology 02/22/22 19:50 Urine, Clean Catch Urine Culture - Preliminary Culture exhibits no growth. 02/22/22 19:50 Urine Catheter - Catheter Streptococcus pneumoniae Antigen (M - Final 02/22/22 21:57 Mucosa - Nose Respiratory Panel (PCR) - Final 02/22/22 19:50 Urine Catheter - Catheter Legionella Antigen - Final 02/22/22 19:50 Mucosa - Nose Influenza Types A,B Direct FA (SUNIL) - Final 02/22/22 18:45 Nasal Secretion SARS-CoV-2 Antigen (Rapid) - Final Physical Exam Narrative Fever, temperature 94.1 ?F. Overall she feels better, confusion resolved. She is currently speech. History of COPD and he states she has chronic cough there is no change in severity characteristic color in sputum production. Patient has mild shortness of breath but states this is normal breathing she denies labored breathing. Physical exam General: Alert awake oriented x3 HEENT: Atraumatic, PERRLA, EOMI, Normocephalic Oral: No Gingival or Mucosal Lesions/ Ulcerations Neck: Supple, No JVD, Negative Carotid Bruits Lungs: Air entry diminished in bilateral lung bases. No crepitation/rhonchi. No hypoxia Cardiovascular: Regular rate, Regular Rhythm, Normal S1, Normal S2, No murmurs Abdomen: Bowel Sounds Present, Soft, Non Tender, Non-Distended : No renal angle tenderness. No suprapubic tenderness. Extremities: No edema, Capillary Refill Less than 3 Seconds Skin: No rashes, No breakdown Musculoskeletal: No Tenderness to Palpation of Joints or Extremities Neurological: No neck rigidity. Cranial nerves II-XII grossly intact, DTR 2+/4 and Symmetrical, Neuro grossly intact Psych/Mental Status: Flat affect. Assessment & Plan Assessment/Plan (1) Acute alteration in mental status: (2) Fever of unknown origin (FUO): PLAN: Plan The patient is a 71 y/o F admitted with 5 days of fever since 02/18/2020, with intermittent confusion and disorientation. #1. Acute encephalopathy secondary to acute viral syndrome, potentially COVID-19 infection: Patient is admitted on [facility]. Evaluated by ID. Impression is atypical presentation of COVID-19 although rapid antigen PCR, respiratory panel and urinary antigens are negative. Started on IV remdesivir. Patient also spiked fever in the afternoon about 103 but no proportional increase in heart rate. Patient not hypoxic or tachypneic. Chest x-ray and CT brain does not show acute change. Patient does not have burning micturition/dysuria or UTI. No abdominal pain, nausea vomiting diarrhea or GI bleed. No neck rigidity. 02/24: Acute encephalopathy has resolved. SARS-CoV-2 IgG and IgA pending. IgM not available. Patient is spiked temperature 104.1. Discussed with ID. Treatment for COVID-19 started yesterday and will wait for response. Patient is not hypoxic, tachypneic or dyspneic. Patient not sure about the allergic history of prednisone but states she more had psychics symptoms, anxiety and nervousness. #2. 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 Hypertension: Continue home regimen including spironolactone, lisinopril, diltiazem, Coreg with hold parameters as needed, PRN hydralazine. #4. Hyperlipidemia: Continue home statin regimen. #5. COPD: No change in cough characteristic of sputum production. Not in exacerbation. Bronchodilator as needed. #6. Diabetes mellitus type II: Hold oral home regimen, ADA diet, Accu-Cheks before meals and at bedtime coverage below sliding scale. #7. Obesity: Weight loss and lifestyle changes encouraged. #8. Former tobacco use: Encourage continued tobacco cessation. #9. DVT prophylaxis: SCDs, Lovenox. #10. CODE status: Patient ELLA is her sons who are present and living will is currently in place. Discussed CODE status at length including difference between FULL code, DNR-CCA and DNR-CC status. Following discussions about the differences in these status, requested very specifically DNR CCA, no intubation status which was confirmed Charges/Coding Visit Charges Inpatient E&M: 49242 Subs Hosp L2
[2022-02-24] MEDS: Ibuprofen 400 MG Tablet PO (16:36)
[2022-02-24] MEDS: guaiFENesin/D-Methorphan TAB.SR.12H 1 TABLET PO ×2 (16:37→21:28)
[2022-02-24 17:00] LABS: Bedside Glucose 119 mg/dL (74-106)
[2022-02-24] MEDS: Atorvastatin Calcium 10 MG Tablet PO (21:28)
[2022-02-24 23:30] LABS: Bedside Glucose 153 mg/dL (74-106)
[2022-02-25] VITALS (13 sets, daily range): BP systolic 67–147; BP diastolic 42–68; PULSE 62–94; RESP 19–30; TEMP 36.8–38.4; O2SAT 92–95
[2022-02-25] MEDS: Albuterol 2.5 MG/3 ML VIAL.NEB. INHALATION (02:41)
[2022-02-25] MEDS: 0.9% Saline Lock 10 ML Syringe IV ×2 (03:04→11:08)
[2022-02-25 07:50] LABS: Hematocrit 30.7 % (37-47); Hemoglobin 10.2 g/dL (12.0-15.0); Mean Corp Hgb Conc 33.2 g/dL (32-36); Mean Corpuscular Hgb 28.5 pg (27.0-32.0); Mean Corpuscular Volume 85.8 fL (81-99); Mean Platelet Vol. 11.1 fl (6.2-12.0); Platelet Count 115 K/mm3 (150-450); RBC Distribution Width SD 47.4 fl (35.1-43.9); Red Blood Count 3.58 M/mm3 (4.2-5.4); White Blood Count 5.3 K/mm3 (4.4-11.0)
[2022-02-25 08:13] LABS: ALB/GLOB Ratio 0.6 RATIO (0.9-2.4); AST(SGOT) 52 U/L (15-37); Alanine Aminotransfer ALT/SGPT 38 U/L (13-56); Albumin, Serum 2.6 g/dL (3.2-5.0); Alkaline Phosphatase 95 U/L (45-117); Anion Gap 8 (5-15); BUN 24 mg/dL (7-18); BUN/Creat Ratio 32.9 RATIO (10-20); Calcium,Total 8.6 mg/dL (8.5-10.1); Chloride 101 mmol/L (98-107); Creatinine, Serum 0.73 mg/dL (0.55-1.02); EST Glomerular Filtration Rate 84 mL/min (>60); Est Glom Filt Rate - Afr Amer 101 mL/min (>60); Globulin 4.1 g/dL (2.2-4.2); Glucose 89 mg/dL (74-106); Potassium 3.4 mmol/L (3.5-5.1); Protein, Total 6.7 g/dL (6.4-8.2); Sodium Level 130 mmol/L (136-145)
[2022-02-25] MEDS: Carvedilol 25 MG Tablet PO ×2 (08:53→18:32)
[2022-02-25] MEDS: Acetaminophen 325 MG Tablet 650 MG PO ×2 (08:59→22:46)
[2022-02-25 09:25] LABS: Bedside Glucose 84 mg/dL (74-106)
[2022-02-25] MEDS: Enoxaparin 40 MG/0.4 ML Syringe SC (11:08)
[2022-02-25] MEDS: guaiFENesin/D-Methorphan TAB.SR.12H 1 TABLET PO ×2 (11:09→22:46)
[2022-02-25] MEDS: Pantoprazole Sodium 20 MG Tablet PO (11:09)
[2022-02-25] MEDS: Spironolactone 25 MG Tablet PO (11:54)
[2022-02-25 12:31] LABS: Bedside Glucose 115 mg/dL (74-106)
--- NOTE | 2022-02-25 13:42 | PCM.PN.HOSP ---
Subjective Subjective Follow-up for acute encephalopathy and infection most likely COVID-19 Patient is admitted to telemetry. X3. Patient has chronic cough due to COPD. No increase or change in characteristic Objective Data Objective Data Vital Signs: Vital Signs Temp Pulse Resp BP Pulse Ox O2 Del Method 98.4 F 71 21 H 115/57 L 92 Room Air 02/25/22 11:06 02/25/22 11:06 02/25/22 11:06 02/25/22 11:53 02/25/22 11:06 02/25/22 11:06 Oxygen Delivery Method Room Air Weight: 151 lb 0.266 oz Body Mass Index (BMI) 29.0 Intake & Output: Intake and Output for Last 24 Hours 02/23/22 02/24/22 02/25/22 23:59 23:59 23:59 Intake Total 1550.50 / 1550.50 1643.33 / 1643.33 500 / 500 Balance 1550.50 / 1550.50 1643.33 / 1643.33 500 / 500 Lab / Micro Data Result Diagrams: 02/25/22 07:10 02/25/22 07:10 Labs: Laboratory Results - last 24 hr 02/24/22 16:31: POC Glucose 119 H 02/24/22 21:30: POC Glucose 153 H 02/25/22 07:10: WBC 5.3, RBC 3.58 L, Hgb 10.2 L, Hct 30.7 L, MCV 85.8, MCH 28.5, MCHC 33.2, RDW Std Deviation 47.4 H, RDW Coeff of Paco 15.0 H, Plt Count 115 L, MPV 11.1 02/25/22 07:10: Sodium 130 L, Potassium 3.4 L, Chloride 101, Carbon Dioxide 21.0, Anion Gap 8, BUN 24 H, Creatinine 0.73, Estim Creat Clear Calc 55.80, Est GFR (MDRD) Af Amer 101, Est GFR (MDRD) Non-Af 84, BUN/Creatinine Ratio 32.9 H, Glucose 89, Calcium 8.6, Total Bilirubin 0.80, AST 52 H, ALT 38, Alkaline Phosphatase 95, Total Protein 6.7, Albumin 2.6 L, Globulin 4.1, Albumin/Globulin Ratio 0.6 L 02/25/22 08:43: POC Glucose 84 02/25/22 12:08: POC Glucose 115 H Micro: Microbiology 02/22/22 18:50 Blood Culture (Wb) - Anticubital Right Blood Culture - Preliminary No growth in 48 hours. 02/22/22 18:49 Blood Culture (Wb) - Left Hand Blood Culture - Preliminary No growth in 48 hours. 02/22/22 19:50 Urine, Clean Catch Urine Culture - Final Culture exhibits no growth. 02/22/22 19:50 Urine Catheter - Catheter Streptococcus pneumoniae Antigen (M - Final 02/22/22 21:57 Mucosa - Nose Respiratory Panel (PCR) - Final 02/22/22 19:50 Urine Catheter - Catheter Legionella Antigen - Final 02/22/22 19:50 Mucosa - Nose Influenza Types A,B Direct FA (SUNIL) - Final 02/22/22 18:45 Nasal Secretion SARS-CoV-2 Antigen (Rapid) - Final Radiography Diagnostic Testing: Radiology Impression Venous Doppler Study 02/23/22 12:42 Interpretation Summary Deep veins of the right lower extremity are patent and compressible segmentally. There is no evidence of right lower extremity deep vein thrombosis. The right great saphenous vein appears patent and compressible segmentally. Deep veins of the left lower extremity are patent and compressible segmentally. There is no evidence of left lower extremity deep vein thrombosis. The left great saphenous vein appears patent and compressible segmentally. Ordering Physician: Krishan Monsalve Referring Physician: Kristie Ragsdale M.D. Performed By: Kerry Lucero RVT Physical Exam Narrative T-max 104.1 Fahrenheit yesterday afternoon. Most recent 101.1 Fahrenheit. Patient does not have true allergy of prednisone but side effects including anxiety restlessness panic panic attack. She denied hives, angioedema, anaphylactic reaction like shock on admission in ICU due to prednisone. Mild chronic cough, normal for her. Physical exam General: Alert awake oriented x3 HEENT: Atraumatic, PERRLA, EOMI, Normocephalic Oral: No Gingival or Mucosal Lesions/ Ulcerations Neck: Supple, No JVD, Negative Carotid Bruits Lungs: Air entry diminished in bilateral lung bases. Mild bilateral rhonchi. No hypoxia Cardiovascular: Regular rate, Regular Rhythm, Normal S1, Normal S2, No murmurs Abdomen: Bowel Sounds Present, Soft, Non Tender, Non-Distended : No renal angle tenderness. No suprapubic tenderness. Extremities: No edema, Capillary Refill Less than 3 Seconds Skin: No rashes, No breakdown Musculoskeletal: No Tenderness to Palpation of Joints or Extremities Neurological: No neck rigidity. Cranial nerves II-XII grossly intact, DTR 2+/4 and Symmetrical, Neuro grossly intact Psych/Mental Status: Flat affect. Assessment & Plan Assessment/Plan (1) Acute alteration in mental status: (2) Fever of unknown origin (FUO): PLAN: Plan The patient is a 71 y/o F admitted with 5 days of fever since 02/18/2020, with intermittent confusion and disorientation. #1. Acute encephalopathy secondary to acute viral syndrome, potentially COVID-19 infection: Patient is admitted on [facility]. Evaluated by ID. Impression is atypical presentation of COVID-19 although rapid antigen PCR, respiratory panel and urinary antigens are negative. Started on IV remdesivir. Patient also spiked fever in the afternoon about 103 but no proportional increase in heart rate. Patient not hypoxic or tachypneic. Chest x-ray and CT brain does not show acute change. Patient does not have burning micturition/dysuria or UTI. No abdominal pain, nausea vomiting diarrhea or GI bleed. No neck rigidity. 02/24: Acute encephalopathy has resolved. SARS-CoV-2 IgG and IgA pending. IgM not available. Patient is spiked temperature 104.1. Discussed with ID. Treatment for COVID-19 started yesterday and will wait for response. Patient is not hypoxic, tachypneic or dyspneic. Patient not sure about the allergic history of prednisone but states she more had psychics symptoms, anxiety and nervousness. 02/25: Started on prednisone as patient does not have true allergy. Continue remdesivir. #2. 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 Hypertension: Continue home regimen including spironolactone, lisinopril, diltiazem, Coreg with hold parameters as needed, PRN hydralazine. #4. Hyperlipidemia: Continue home statin regimen. #5. COPD: No change in cough characteristic of sputum production. Not in exacerbation. Bronchodilator as needed. #6. Diabetes mellitus type II: Hold oral home regimen, ADA diet, Accu-Cheks before meals and at bedtime coverage below sliding scale. #7. Obesity: Weight loss and lifestyle changes encouraged. #8. Former tobacco use: Encourage continued tobacco cessation. #9. DVT prophylaxis: SCDs, Lovenox. #10. CODE status: Patient ELLA is her sons who are present and living will is currently in place. Discussed CODE status at length including difference between FULL code, DNR-CCA and DNR-CC status. Following discussions about the differences in these status, requested very specifically DNR CCA, no intubation status which was confirmed Charges/Coding Visit Charges Inpatient E&M: 52134 Subs Hosp L2
--- NOTE | 2022-02-25 15:22 | CASEMGMT ---
Social Work Note Per hematology technologist questions, pt has completed HCPOA and LW, has not provided copy to [facility], and pt unable to bring in copy. Kerry Diehl [employer], [employer] SYSTEMS [employer]
[2022-02-25 18:20] LABS: Bedside Glucose 128 mg/dL (74-106)
[2022-02-25] MEDS: Atorvastatin Calcium 10 MG Tablet PO (22:46)
[2022-02-25 23:10] LABS: Bedside Glucose 111 mg/dL (74-106)
[2022-02-26 03:53] VITALS: BP 136/70; PULSE 80; RESP 20; TEMP 36.6; O2SAT 94
[2022-02-26 06:25] LABS: Hematocrit 31.9 % (37-47); Hemoglobin 10.4 g/dL (12.0-15.0); Mean Corp Hgb Conc 32.6 g/dL (32-36); Mean Platelet Vol. 10.8 fl (6.2-12.0); Platelet Count 110 K/mm3 (150-450); RBC Distribution Width SD 47.7 fl (35.1-43.9); Red Blood Count 3.71 M/mm3 (4.2-5.4); White Blood Count 4.3 K/mm3 (4.4-11.0)
[2022-02-26 07:10] LABS: Bedside Glucose 79 mg/dL (74-106)
[2022-02-26 07:27] LABS: ALB/GLOB Ratio 0.6 RATIO (0.9-2.4); AST(SGOT) 65 U/L (15-37); Alanine Aminotransfer ALT/SGPT 44 U/L (13-56); Albumin, Serum 2.5 g/dL (3.2-5.0); Alkaline Phosphatase 107 U/L (45-117); Anion Gap 4 (5-15); BUN 13 mg/dL (7-18); BUN/Creat Ratio 22.1 RATIO (10-20); Calcium,Total 8.5 mg/dL (8.5-10.1); Chloride 104 mmol/L (98-107); Creatinine, Serum 0.59 mg/dL (0.55-1.02); EST Glomerular Filtration Rate 107 mL/min (>60); Est Glom Filt Rate - Afr Amer 130 mL/min (>60); Estimated Creatinine Clearance 55.72 ml/min; Glucose 90 mg/dL (74-106); Potassium 3.7 mmol/L (3.5-5.1); Protein, Total 6.5 g/dL (6.4-8.2); Sodium Level 134 mmol/L (136-145)
[2022-02-26 07:58] VITALS: O2SAT 94
[2022-02-26 08:08] VITALS: BP 144/68; PULSE 89; RESP 21; TEMP 37.7; O2SAT 93
[2022-02-26] MEDS: Pantoprazole Sodium 20 MG Tablet PO (08:15)
[2022-02-26] MEDS: dilTIAZem CD 240 MG Capsule PO (08:16)
[2022-02-26] MEDS: Carvedilol 25 MG Tablet PO (08:17)
[2022-02-26] MEDS: Spironolactone 25 MG Tablet PO (08:17)
[2022-02-26] MEDS: Enoxaparin 40 MG/0.4 ML Syringe SC (08:17)
[2022-02-26] MEDS: dexAMETHasone 4 MG Tablet 6 MG PO (08:18)
[2022-02-26] MEDS: guaiFENesin/D-Methorphan TAB.SR.12H 1 TABLET PO (08:18)
[2022-02-26] MEDS: Lisinopril 20 MG Tablet PO (08:18)
--- NOTE | 2022-02-26 08:43 | DCINST_ITS ---
Discharge Instructions Diet Discharge Diet: 1800 Calorie Control Diet and 2000 mg Sodium Diet Activity Discharge Activity: May Not Drive Weight Bearing Status: Weight bearing as tolerated Dressing / Incision Call your doctor if you observe: Fever of 101 or Higher, Coldness, Increased Pain, Numbness or Tingling, Change in Color, Inability to urinate, Inability to have a bowel movement, Using more than 1 pad per hour, Shortness of breath, Dizziness, Fainting spells, Swelling in the ankles, Chest pain, Prolonged hiccupping, Increased palpitations (irregular heartbeat), Calf discomfort and Uncontrolled pain Follow Up Care Test Results: Test results from this visit will be discussed in further detail at your follow- up appointment, if applicable. Discharge Plan Admission Admit Date/Time: 02/23/22 11:01 Primary Reason for Your Visit: covid 19 infection, encephalopathy Attending Provider: Krishan Monsalve Primary Care Provider: Kristie Ragsdale Consulting Providers: Rabia Franklin ; Vinny Jin Instructions Additional Instructions / Restrictions: Self quarantine until March 09, 2022 Advised to continue incentive spirometry and chest physiotherapy/PEP every 1 or 2 hours at home at least for 1 week. Lisinopril dose decreased to 20 mg daily. Eliquis 2.5 mg twice daily for DVT prophylaxis for 2 weeks. Advised covid vaccination after 3 weeks of getting resolution of symptoms. Discharge Orders/Prescriptions Prescriptions: New lisinopril 20 mg Tablet 20 mg PO DAILY Qty: 0 0RF Mucinex DM 30-600 mg Tablet Extended Release 12 Hr 1 tab PO BID Qty: 14 0RF Eliquis 2.5 mg tablet 2.5 mg PO BID Qty: 30 0RF Continued carvedilol 25 mg tablet 25 mg PO BID Label Comments: 1 tablet by mouth as directed diltiazem HCl 240 mg capsule,ext.rel 24h degradable 240 mg PO DAILY Label Comments: 1 capsule by mouth as directed atorvastatin 10 mg tablet 10 mg PO QHS Label Comments: 1 tablet by mouth as directed spironolactone 25 mg tablet 25 mg PO DAILY Label Comments: 1 tablet by mouth as directed omeprazole 20 mg capsule,delayed release(DR/EC) 20 mg PO DAILY Label Comments: 1 capsule by mouth as directed cholecalciferol (vitamin D3) [Vitamin D3] 50 mcg (2,000 unit) tablet 1 tab PO DAILY Label Comments: 1 tablet by mouth as directed magnesium amino acid chelate 100 mg tablet 400 mg PO DAILY Label Comments: 1 tablet by mouth as directed 400 mg Held metformin 1,000 mg tablet 1,000 mg PO BID Hold Instructions: Hold for 2 days Label Comments: 1 tablet by mouth as directed Discontinued lisinopril 40 mg tablet 40 mg PO DAILY Label Comments: 1 tablet by mouth as directed Referrals / Follow Up: Kristie Ragsdale MD [Primary Care Provider] - Within 1 Week Vinny Jin MD [Med Staff - Active Staff] - Within 1 Month (If needed for high fever/infection) Disposition Disposition (needs filled in before D/C Order can be placed): Home, Self Care
[2022-02-26 11:20] VITALS: PULSE 74; RESP 19; TEMP 36.8; O2SAT 94
[2022-02-26 11:45] LABS: Bedside Glucose 125 mg/dL (74-106)
--- NOTE | 2022-02-26 12:52 | DS.PCM_ITS ---
Providers Date of Admission: 02/23/22 Date of Discharge: 02/26/22 Primary Care Physician: Dr. Kristie Ragsdale MD Consultations 02/23/22 08:07 Consult: Infectious Disease Routine Consulting Provider: Vinny Jin Reason for Consult: FUO. covid pcr neg, CXR normal. U/A neg, viral? EMERGENT Consult: No MD Notified: Yes Date Notified: 02/23/22 Time Notified: 08:07 Method of Notification: Text Reason For Visit: ACUTE ENCEPHALOPATHY, FUO Diagnosis Discharge Diagnosis (1) Acute alteration in mental status: Status: Acute Code(s): R41.82 - Altered mental status, unspecified (2) Fever of unknown origin (FUO): Status: Acute Code(s): R50.9 - Fever, unspecified Medications at Discharge Home Medications atorvastatin 10 mg tablet 10 mg PO QHS cholesterol 02/22/22 carvedilol 25 mg tablet 25 mg PO BID blood pressure 02/22/22 cholecalciferol (vitamin D3) 50 mcg (2,000 unit) tablet (Vitamin D3) 1 tab PO DAILY supplement 02/22/22 diltiazem HCl 240 mg capsule,extended release 24 hr, controlled 240 mg PO DAILY heart 02/22/22 magnesium amino acid chelate 100 mg tablet 400 mg PO DAILY supplement 02/22/22 metformin 1,000 mg tablet 1,000 mg PO BID diabetes 02/22/22 omeprazole 20 mg capsule,delayed release 20 mg PO DAILY GERD 02/22/22 spironolactone 25 mg tablet 25 mg PO DAILY diuretic 02/22/22 apixaban 2.5 mg tablet (Eliquis) 2.5 mg PO BID #30 tabs 02/26/22 dextromethorphan-guaifenesin 30 mg-600 mg tablet extended hr (Mucinex DM) 1 tab PO BID #14 tabs 02/26/22 lisinopril 20 mg tablet 20 mg PO DAILY #0 tabs 02/26/22 Hospital Course Summary of Care Provided Hospital Course: The patient is a 71 y/o F admitted with 5 days of fever since 02/18/2020, with intermittent confusion and disorientation.? #1.? Acute encephalopathy secondary to acute viral syndrome, potentially COVID- 19 infection: Patient is admitted on [facility].? Evaluated by ID.? Impression is atypical presentation of COVID-19 although rapid antigen PCR, respiratory panel and urinary antigens are negative.? Started on IV remdesivir.? Patient also spiked fever in the afternoon about 103 but no proportional increase in heart rate.? Patient not hypoxic or tachypneic.? Chest x-ray and CT brain does not show acute change.? Patient does not have burning micturition/dysuria or UTI.? No abdominal pain, nausea vomiting diarrhea or GI bleed.? No neck rigidity. 02/24: Acute encephalopathy has resolved.? SARS-CoV-2 IgG and IgA pending.? IgM not available.? Patient is spiked temperature 104.1.? Discussed with ID.? Treatment for COVID-19 started yesterday and will wait for response.? Patient is not hypoxic, tachypneic or dyspneic.? Patient not sure about the allergic history of prednisone but states she more had psychics symptoms, anxiety and nervousness. 02/25: Started on prednisone as patient does not have true allergy.? Continue remdesivir. 02/26: Patient refused for prednisone. Patient had total 4 doses of IV remdesivir. No high-grade fever more than 24 hours. Patient wants to go home and discharged on Mucinex DM, Eliquis 2.5 mg p.o. twice daily for DVT prophylaxis 2 weeks. Advised and encouraged to continue incentive spirometry and Pep for at least 1 more week. Self quarantine until March 09, 2022. SARS-CoV-2 antibodies are still pending. #2.? 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 Hypertension: Continue home regimen including spironolactone, lisinopril, diltiazem, Coreg with hold parameters as needed, PRN hydralazine. 02/26: Patient blood pressure is normal. Dose of lisinopril decreased to 20 mg daily. Other medications continued. #4.? Hyperlipidemia: Continue home statin regimen. #5. COPD: No change in cough characteristic of sputum production.? Not in exacerbation.? Bronchodilator as needed. #6.? Diabetes mellitus type II: Hold oral home regimen, ADA diet, Accu-Cheks before meals and at bedtime coverage below sliding scale. #7.? Obesity: Weight loss and lifestyle changes encouraged. #8.? Former tobacco use: Encourage continued tobacco cessation. #9.? DVT prophylaxis: SCDs, Lovenox. #10.? CODE status: DNR CCA with no intubation. Discharge medication reconciliation done. Discharge follow-up instructions completed. Discharge process discussed with the patient and all questions were answered to patient's satisfaction. Follow-up PCP in 1 to 2 weeks. Advised vaccination after 4 weeks of resolution of COVID symptoms Total time spent, exact 35 minutes on discharge meds reconciliation, examination, coordination of care with nurses and ancillary staff, review of imaging and blood test and discussion with the patient on follow-up instructions. Physical Exam Narrative Seen and examined on the day of discharge. No fever in last 24 hours. T-max 101.1 Fahrenheit about 8 AM on 02/25. Patient refused for prednisone Mild chronic cough, mostly dry. Quit smoking 20 years ago Physical exam General: Alert awake oriented x3 HEENT: Atraumatic, PERRLA, EOMI, Normocephalic Oral: No Gingival or Mucosal Lesions/ Ulcerations Neck: Supple, No JVD, Negative Carotid Bruits Lungs: Air entry diminished in bilateral lung bases. Mild bilateral rhonchi. No hypoxia Cardiovascular: Regular rate, Regular Rhythm, Normal S1, Normal S2, No murmurs Abdomen: Bowel Sounds Present, Soft, Non Tender, Non-Distended : No renal angle tenderness. No suprapubic tenderness. Extremities: No edema, Capillary Refill Less than 3 Seconds Skin: No rashes, No breakdown Musculoskeletal: No Tenderness to Palpation of Joints or Extremities Neurological: No neck rigidity. Cranial nerves II-XII grossly intact, DTR 2+/4 and Symmetrical, Neuro grossly intact Psych/Mental Status: Flat affect. Weight / BMI Weight Weight: 150 lb 12.739 oz Body Mass Index (BMI) 29.0 ABG / Lab / Microbiology Data Result Diagrams: 02/26/22 06:14 02/26/22 06:14 Laboratory: Laboratory Results - last 24 hr 02/25/22 08:43: POC Glucose 84 02/25/22 12:08: POC Glucose 115 H 02/25/22 17:54: POC Glucose 128 H 02/25/22 22:38: POC Glucose 111 H 02/26/22 06:14: WBC 4.3 L, RBC 3.71 L, Hgb 10.4 L, Hct 31.9 L, MCV 86.0, MCH 28.0, MCHC 32.6, RDW Std Deviation 47.7 H, RDW Coeff of Paco 15.0 H, Plt Count 110 L, MPV 10.8 02/26/22 06:14: Sodium 134 L, Potassium 3.7, Chloride 104, Carbon Dioxide 26.0, Anion Gap 4 L, BUN 13, Creatinine 0.59, Estim Creat Clear Calc 55.72, Est GFR ( MDRD) Af Amer 130, Est GFR (MDRD) Non-Af 107, BUN/Creatinine Ratio 22.1 H, Gl ucose 90, Calcium 8.5, Total Bilirubin 0.80, AST 65 H, ALT 44, Alkaline Phosp hatase 107, Total Protein 6.5, Albumin 2.5 L, Globulin 4.0, Albumin/Globulin Ratio 0.6 L 02/26/22 06:51: POC Glucose 79 Microbiology: Microbiology 02/22/22 18:50 Blood Culture (Wb) - Anticubital Right Blood Culture - Preliminary No growth in 48 hours. 02/22/22 18:49 Blood Culture (Wb) - Left Hand Blood Culture - Preliminary No growth in 48 hours. 02/22/22 19:50 Urine, Clean Catch Urine Culture - Final Culture exhibits no growth. 02/22/22 19:50 Urine Catheter - Catheter Streptococcus pneumoniae Antigen (M - Final 02/22/22 21:57 Mucosa - Nose Respiratory Panel (PCR) - Final 02/22/22 19:50 Urine Catheter - Catheter Legionella Antigen - Final 02/22/22 19:50 Mucosa - Nose Influenza Types A,B Direct FA (SUNIL) - Final 02/22/22 18:45 Nasal Secretion SARS-CoV-2 Antigen (Rapid) - Final D/C Instructions Discharge Diet: 1800 Calorie Control Diet and 2000 mg Sodium Diet Weight Bearing Status: Weight bearing as tolerated Call your doctor if you observe: Fever of 101 or Higher, Coldness, Increased Pain, Numbness or Tingling, Change in Color, Inability to urinate, Inability to have a bowel movement, Using more than 1 pad per hour, Shortness of breath, Dizziness, Fainting spells, Swelling in the ankles, Chest pain, Prolonged hiccupping, Increased palpitations (irregular heartbeat), Calf discomfort and Uncontrolled pain Meaningful Use Info Meaningful Use Diagnoses (Choose all that apply): None applicable Discharge Plan Admission Admit Date/Time: 02/23/22 11:01 Primary Reason for Your Visit: covid 19 infection, encephalopathy Attending Provider: Krishan Monsalve Primary Care Provider: Kristie Ragsdale Consulting Providers: Rabia Franklin ; Vinny Jin Instructions Additional Instructions / Restrictions: Self quarantine until March 09, 2022 Advised to continue incentive spirometry and chest physiotherapy/PEP every 1 or 2 hours at home at least for 1 week. Lisinopril dose decreased to 20 mg daily. Eliquis 2.5 mg twice daily for DVT prophylaxis for 2 weeks. Advised covid vaccination after 3 weeks of getting resolution of symptoms. Discharge Orders/Prescriptions Prescriptions: New lisinopril 20 mg Tablet 20 mg PO DAILY Qty: 0 0RF Mucinex DM 30-600 mg Tablet Extended Release 12 Hr 1 tab PO BID Qty: 14 0RF Eliquis 2.5 mg tablet 2.5 mg PO BID Qty: 30 0RF Continued carvedilol 25 mg tablet 25 mg PO BID Label Comments: 1 tablet by mouth as directed diltiazem HCl 240 mg capsule,ext.rel 24h degradable 240 mg PO DAILY Label Comments: 1 capsule by mouth as directed atorvastatin 10 mg tablet 10 mg PO QHS Label Comments: 1 tablet by mouth as directed spironolactone 25 mg tablet 25 mg PO DAILY Label Comments: 1 tablet by mouth as directed omeprazole 20 mg capsule,delayed release(DR/EC) 20 mg PO DAILY Label Comments: 1 capsule by mouth as directed cholecalciferol (vitamin D3) [Vitamin D3] 50 mcg (2,000 unit) tablet 1 tab PO DAILY Label Comments: 1 tablet by mouth as directed magnesium amino acid chelate 100 mg tablet 400 mg PO DAILY Label Comments: 1 tablet by mouth as directed 400 mg Held metformin 1,000 mg tablet 1,000 mg PO BID Hold Instructions: Hold for 2 days Label Comments: 1 tablet by mouth as directed Discontinued lisinopril 40 mg tablet 40 mg PO DAILY Label Comments: 1 tablet by mouth as directed Referrals / Follow Up: Kristie Ragsdale MD [Primary Care Provider] - Within 1 Week Vinny Jin MD [Med Staff - Active Staff] - Within 1 Month (If needed for high fever/infection) Disposition Disposition (needs filled in before D/C Order can be placed): Home, Self Care Charges/Coding Visit Charges Inpatient E&M: 91974 Disch Hosp
[2022-02-26 13:56] VITALS: BP 102/51; PULSE 62; RESP 20; TEMP 36.5; O2SAT 97
== END 2022-02-26 14:57 | disposition home or self-care (01) | DRG 177 ==
LOC: ED 21:08 → MS3 21:37
PROVIDERS: Internal Medicine Infectious Disease; Admitting Provider Family Medicine; Emergency Provider Emergency Medicine; PCP Internal Medicine; Visit Provider Internal Medicine
DX: U07.1 COVID-19 (principal); G93.41 Metabolic encephalopathy; E11.9 Type 2 diabetes mellitus without complications; K74.60 Unspecified cirrhosis of liver; J44.9 Chronic obstructive pulmonary disease, unspecified; I10 Essential (primary) hypertension; K75.81 Nonalcoholic steatohepatitis (NASH); E78.5 Hyperlipidemia, unspecified; Z28.310 Unvaccinated for COVID-19; E66.9 Obesity, unspecified; Z20.822 Contact with and (suspected) exposure to COVID-19; Z66 Do not resuscitate; Z79.84 Long term (current) use of oral hypoglycemic drugs; Z79.899 Other long term (current) drug therapy; Z87.891 Personal history of nicotine dependence
CPT/HCPCS: 36415; 70450; 71045; 71275; 80053; 81001; 82140; 82962; 83605; 83880; 84145; 84484; 85025; 85027; 85379; 85610; 85730; 86769; 87040; 87086; 87428; 87449; 87633; 87635; 87804; 87811; 93005; 93970; 94640; 94667; 94762; 97161; 97165; 99285; J7030; J7050; Q9967; A4216; J0248; U0003; U0005

== ENCOUNTER 2022-03-16 18:57 | Emergency (ER) | payer MEDICARE, SELFPAY ==
[2022-03-16 18:57] VITALS: BP 121/61; PULSE 97; RESP 18; TEMP 35.7; O2SAT 95; BMI 27.9
[2022-03-16 19:00] VITALS: BP 121/61; PULSE 97; RESP 18; TEMP 35.7; O2SAT 95
--- NOTE | 2022-03-16 19:30 | ED.VIS.FEGU ---
HPI HPI - Female History of Present Illness Chief Complaint: Complaint Informant: patient and family Narrative Narrative: Presents for dysuria for the past 2 to 3 weeks. No frequency. Subjective fevers today. Nausea vomiting x1 today. No back pain. No abdominal pain. Recent hospitalization for concerns of COVID per patient and family. She was empirically placed on Eliquis. Allergies to penicillins causing hives. Reviewing records hospitalized end of January for encephalopathy and fevers. Treated for presumed COVID. Encephalopathy improved. Continue treatment was empirically put on Eliquis twice a day for DVT prophylaxis for 2 weeks. [facility] Medical History Asthma Cirrhosis of liver COPD (chronic obstructive pulmonary disease) COPD (chronic obstructive pulmonary disease) Diabetes Ex-smoker Hyperlipemia Hypertension Liver cirrhosis Suspected COVID-19 virus infection Home Medications atorvastatin 10 mg tablet 10 mg PO QHS cholesterol 02/22/22 [History Last Taken 02/21/22] carvedilol 25 mg tablet 25 mg PO BID blood pressure 02/22/22 [History Last Taken 02/22/22] cholecalciferol (vitamin D3) 50 mcg (2,000 unit) tablet (Vitamin D3) 1 tab PO DAILY supplement 02/22/22 [History Last Taken 02/22/22] diltiazem HCl 240 mg capsule,extended release 24 hr, controlled 240 mg PO DAILY heart 02/22/22 [History Last Taken 02/22/22] magnesium amino acid chelate 100 mg tablet 400 mg PO DAILY supplement 02/22/22 [History Last Taken 02/22/22] metformin 1,000 mg tablet 1,000 mg PO BID diabetes 02/22/22 [History Last Taken 02/22/22] omeprazole 20 mg capsule,delayed release 20 mg PO DAILY GERD 02/22/22 [History Last Taken 02/22/22] spironolactone 25 mg tablet 25 mg PO DAILY diuretic 02/22/22 [History Last Taken 02/22/22] apixaban 2.5 mg tablet (Eliquis) 2.5 mg PO BID #30 tabs 02/26/22 [Rx Last Taken Unknown] dextromethorphan-guaifenesin 30 mg-600 mg tablet extended hr (Mucinex DM) 1 tab PO BID #14 tabs 02/26/22 [Rx Last Taken Unknown] lisinopril 20 mg tablet 20 mg PO DAILY #0 tabs 02/26/22 [Rx Last Taken Unknown] nitrofurantoin monohydrate/macrocrystals 100 mg capsule (Macrobid) 100 mg PO Q12H 7 days #14 caps 03/16/22 [Rx Last Taken Unknown] Allergy/AdvReac Type Severity Reaction Status Date / Time Penicillins Allergy Hives Verified 02/22/22 22:21 prednisone Allergy anxiety, Verified 02/25/22 10:35 restlessness Family History Mother Diabetes Father Heart disease Surgical History Hx of tonsillectomy Social History household members: family and other details: Her son and her grandson live with her. Smoking Status: Former smoker how long ago did patient quit smoking: Quit at age 50, smoked ~ 1 ppd since teen until quit. alcohol intake: never substance use type: does not use ROS ROS ED Constitutional Constitutional ED: Reports fever(s); Denies chills or sweats Eyes Eyes: Denies change in vision ENT ENT ED: Denies dysphagia or sore throat Cardiovascular Cardiovascular: Denies chest pain, leg edema, palpitations or racing heartbeat Respiratory/Chest Respiratory/Chest: Denies cough, dyspnea or dyspnea on exertion Gastrointestinal Gastrointestinal: Reports nausea and vomiting; Denies abdominal pain or diarrhea Genitourinary Genitourinary ED: Reports dysuria; Denies hematuria or urinary frequency Musculoskeletal Musculoskeletal: Denies back pain, extremity pain or neck pain Integumentary Denies rash or wounds Neurologic Neurologic: Denies headache(s), paresthesias or weakness EXAM Physical Exam Const Vital Signs: 03/16/22 18:57 03/16/22 19:00 03/16/22 21:13 Temperature 96.2 F L 96.2 F L Temperature Source Temporal Temporal Pulse Rate 97 97 72 Respiratory Rate 18 18 16 Blood Pressure 121/61 H 121/61 H 110/54 L Blood Pressure Mean 81 81 72 Pulse Ox 95 95 97 Oxygen Delivery Method Room Air Room Air Room Air Positive well nourished and well developed Constitutional Narrative: Nontoxic. General Appearance ED: well developed and NAD HEENT Reports dry mucous membranes normocephalic and atraumatic Mouth ED: Yes dry mucous membranes Mouth: dry mucous membranes Eyes PERRL, EOMs intact bilaterally and conjunctivae normal General Eye ED: Yes normal appearance of both eyes Neck no lymphadenopathy and supple General: Negative for tenderness Chest Wall Chest: Negative for tenderness Resp normal respiratory effort and normal air movement Effort and Inspection: symmetric chest movement; Negative for respiratory distress Cardio regular rate, regular rhythm and no murmurs Peripheral Pulses: pulses 2+ throughout GI normal to inspection, nondistended, normoactive bowel sounds and non-tender Palpation: Negative for guarding or rebound tenderness present Back/Spine no CVA tenderness and no thoracic nor lumbar tenderness Extremity normal to inspection General Extremety ED: Negative for edema or tenderness General Extremity: Negative for edema Neuro oriented x3 and no sensory deficits noted Sensorium / Orientation: awake and alert Skin no rashes or lesions noted and no wounds MDM MDM MDM Narrative Medical decision making narrative: Patient dry mucosal membranes. With her recent hospitalization of symptoms. IV is placed with fluids given basic labs normal white count 7.5 creatinine 0.8. Urine did note signs of infection. Culture sent. She is started on Macrobid. She will follow-up as an outpatient. All questions were answered. Lab Data Attestation: I reviewed the patient's lab results. Labs: Laboratory Results - last 24 hr 03/16/22 03/16/22 03/16/22 19:15 19:40 19:40 WBC 7.5 RBC 4.02 L Hgb 11.6 L Hct 35.5 L MCV 88.3 MCH 28.9 MCHC 32.7 RDW Std Deviation 52.5 H RDW Coeff of Paco 16.2 H Plt Count 109 L MPV 9.9 Immature Gran % (Auto) 0.300 Neut % (Auto) 65.8 Lymph % (Auto) 20.5 Barton % (Auto) 12.7 H Eos % (Auto) 0.3 Baso % (Auto) 0.4 Absolute Neuts (auto) 4.9 Absolute Lymphs (auto) 1.54 Nucleated RBC % 0 Sodium 137 Potassium 3.7 Chloride 104 Carbon Dioxide 22.0 Anion Gap 11 BUN 16 Creatinine 0.80 Estim Creat Clear Calc 63.94 Est GFR (MDRD) Af Amer 91 Est GFR (MDRD) Non-Af 75 BUN/Creatinine Ratio 20.0 Glucose 125 H Calcium 9.5 Urine Color Yellow Urine Clarity Clear Urine pH 7.0 Ur Specific [place] 1.005 Urine Protein 30 H Urine Glucose (UA) Normal Urine Ketones Negative Urine Occult Blood 25 H Urine Nitrite Negative Urine Bilirubin Negative Urine Urobilinogen 1 H Ur Leukocyte Esterase 100 H Urine RBC 0-5 SEEN Urine WBC 10-25 SEEN Ur Squamous Epith Cells 0-5 SEEN Urine Bacteria 3+ Urine Mucus 0 SEEN Discharge Plan Triage Chief Complaint: Complaint ED Provider: Toy Chinchilla Dx/Rx/DC Orders Clinical Impression: Acute UTI, Dysuria, Dehydration Instructions: Urinary Tract Infections in Women Prescriptions: New nitrofurantoin monohyd/m-cryst [Macrobid] 100 mg capsule 100 mg PO Q12H 7 Days Qty: 14 0RF Rx Instructions: must administer with a meal/food No Action carvedilol 25 mg tablet 25 mg PO BID Label Comments: 1 tablet by mouth as directed diltiazem HCl 240 mg capsule,ext.rel 24h degradable 240 mg PO DAILY Label Comments: 1 capsule by mouth as directed atorvastatin 10 mg tablet 10 mg PO QHS Label Comments: 1 tablet by mouth as directed spironolactone 25 mg tablet 25 mg PO DAILY Label Comments: 1 tablet by mouth as directed metformin 1,000 mg tablet 1,000 mg PO BID Hold Instructions: Hold for 2 days Label Comments: 1 tablet by mouth as directed omeprazole 20 mg capsule,delayed release(DR/EC) 20 mg PO DAILY Label Comments: 1 capsule by mouth as directed cholecalciferol (vitamin D3) [Vitamin D3] 50 mcg (2,000 unit) tablet 1 tab PO DAILY Label Comments: 1 tablet by mouth as directed magnesium amino acid chelate 100 mg tablet 400 mg PO DAILY Label Comments: 1 tablet by mouth as directed 400 mg lisinopril 20 mg Tablet 20 mg PO DAILY Qty: 0 0RF Mucinex DM 30-600 mg Tablet Extended Release 12 Hr 1 tab PO BID Qty: 14 0RF Eliquis 2.5 mg tablet 2.5 mg PO BID Qty: 30 0RF Primary Care Provider: Kristie Ragsdale Referrals: Kristie Ragsdale MD [Primary Care Provider] - 3-5 Days Activity Restrictions/Additional Instructions: CBC and BMP stable. Urine with infection. Culture sent. Take antibiotic as prescribed. Continue oral fluids for hydration at home. Disposition Disposition: Home, Self Care Discharge Date/Time: 03/16/22 21:41
[2022-03-16] MEDS: 0.9% Normal Saline 1,000 ML 1000 ML IV (19:40)
[2022-03-16 20:16] LABS: Mucous, Urine 0 SEEN /hpf (<or=2+)
[2022-03-16 20:33] LABS: Absolute Lymphocyte Count 1.54 X10^3/uL (0.83-4.51); Absolute Neutrophil Count 4.9 X10^3/uL (2.0-7.7); Basophil# 0.03 X10^3/uL; Basophil% 0.4 % (0-1); Eosinophil# 0.02 X10^3/uL; Eosinophils% 0.3 % (0-5); Hematocrit 35.5 % (37-47); Hemoglobin 11.6 g/dL (12.0-15.0); Lymphocyte # 1.54 X10^3/ul (0.83-4.51); Lymphocyte % 20.5 % (19-41); Mean Corp Hgb Conc 32.7 g/dL (32-36); Mean Corpuscular Hgb 28.9 pg (27.0-32.0); Mean Corpuscular Volume 88.3 fL (81-99); Mean Platelet Vol. 9.9 fl (6.2-12.0); Monocyte# 0.95 X10^3/uL; Monocyte% 12.7 % (0-10); NRBC Flagged by Analyzer 0 % (0-5); Neutrophil # 4.94 X10^3/uL (2.7-7.7); Neutrophil % 65.8 % (47-70); Platelet Count 109 K/mm3 (150-450); RBC Distribution Width CV 16.2 % (11.6-14.6); RBC Distribution Width SD 52.5 fl (35.1-43.9); Red Blood Count 4.02 M/mm3 (4.2-5.4); White Blood Count 7.5 K/mm3 (4.4-11.0)
[2022-03-16 20:43] LABS: Anion Gap 11 (5-15); BUN 16 mg/dL (7-18); Calcium,Total 9.5 mg/dL (8.5-10.1); Chloride 104 mmol/L (98-107); EST Glomerular Filtration Rate 75 mL/min (>60); Est Glom Filt Rate - Afr Amer 91 mL/min (>60); Estimated Creatinine Clearance 63.94 ml/min; Glucose 125 mg/dL (74-106); Potassium 3.7 mmol/L (3.5-5.1); Sodium Level 137 mmol/L (136-145)
[2022-03-16 20:43] LABS: Color, Urine Yellow (Yellow); Glucose, Dipstick Normal (Normal); Ketone-Dipstick Negative (Negative); Leukocyte Esterase-Dipstick 100 /ul (Negative); Nitrite-Dipstick Negative (Negative); Occult Blood-Urine 25 /ul (Negative); Protein-Dipstick 30 mg/dl (Negative); Specific Gravity, Urine 1.005 (1.002-1.030); Urine Bilirubin Dipstick Negative (Negative); Urine Clarity Clear (Clear); Urine Urobilinogen 1 mg/dl (Normal)
[2022-03-16] MEDS: Nitrofurantoin Macrocrystals 100 MG Capsule PO (21:12)
[2022-03-16 21:13] VITALS: BP 110/54; PULSE 72; RESP 16; O2SAT 97
[2022-03-16 21:22] LABS: Red Blood Cells-Urine 0-5 SEEN /hpf (0-5); Squamous Epithelial Cells - UA 0-5 SEEN /hpf (5-10); White Blood Cells 10-25 SEEN /hpf (0-5)
[2022-03-16 21:23] LABS: Bacteria 3+ /hpf (None Seen)
== END 2022-03-16 21:41 | disposition home or self-care (01) ==
PROVIDERS: Emergency Provider Emergency Medicine; PCP Internal Medicine; Visit Provider Emergency Medicine
DX: N39.0 Urinary tract infection, site not specified (principal); J44.9 Chronic obstructive pulmonary disease, unspecified; E11.9 Type 2 diabetes mellitus without complications; E86.0 Dehydration; R11.2 Nausea with vomiting, unspecified; I10 Essential (primary) hypertension; E78.5 Hyperlipidemia, unspecified; Z88.0 Allergy status to penicillin; Z79.01 Long term (current) use of anticoagulants; Z79.84 Long term (current) use of oral hypoglycemic drugs; Z79.899 Other long term (current) drug therapy; Z87.891 Personal history of nicotine dependence
CPT/HCPCS: 80048; 81001; 85025; 87077; 87086; 87088; 87186; 96360; 96361; 99283; J7030; A4216

== ENCOUNTER 2024-06-10 16:56 | Emergency (ER) | payer MEDICARE, SELFPAY ==
[2024-06-10] VITALS (7 sets, daily range): BP systolic 99–125; BP diastolic 47–86; PULSE 55–97; RESP 12–19; TEMP 36.6–36.7; O2SAT 95–99; BMI 28.9
[2024-06-10] MEDS: Ipratropium/Albuterol Sulfate 3 ML AMPUL.NEB INHALATION (17:54)
[2024-06-10 18:14] LABS: Absolute Lymphocyte Count 1.57 X10^3/uL (0.83-4.51); Absolute Neutrophil Count 1.8 X10^3/uL (2.0-7.7); Basophil# 0.01 X10^3/uL; Eosinophil# 0.25 X10^3/uL; Hematocrit 33.6 % (37-47); Hemoglobin 10.5 g/dL (12.0-15.0); Lymphocyte # 1.57 X10^3/ul (0.83-4.51); Mean Corp Hgb Conc 31.3 g/dL (32-36); Mean Corpuscular Hgb 25.5 pg (27.0-32.0); Mean Corpuscular Volume 81.8 fL (81-99); Mean Platelet Vol. 11.3 fl (6.2-12.0); NRBC Flagged by Analyzer 0 % (0-5); Neutrophil # 1.84 X10^3/uL (2.7-7.7); POSITIVE COUNT YES; POSITIVE MORPHOLOGY YES; Platelet Count 77 K/mm3 (150-450); RBC Distribution Width CV 17.1 % (11.6-14.6); RBC Distribution Width SD 50.3 fl (35.1-43.9); Red Blood Count 4.11 M/mm3 (4.2-5.4); White Blood Count 4.2 K/mm3 (4.4-11.0)
[2024-06-10 18:16] LABS: Anion Gap 9 (5-15); BUN 22 mg/dL (7-18); BUN/Creat Ratio 13.6 RATIO (10-20); Calcium,Total 9.5 mg/dL (8.5-10.1); Chloride 107 mmol/L (98-107); Creatinine, Serum 1.62 mg/dL (0.55-1.02); EST Glomerular Filtration Rate 33 mL/min (>60); Est Glom Filt Rate - Afr Amer 40 mL/min (>60); Estimated Creatinine Clearance 25.64 ml/min; Glucose 108 mg/dL (74-106); Potassium 4.8 mmol/L (3.5-5.1); Sodium Level 137 mmol/L (136-145)
[2024-06-10 18:17] LABS: Differential Indicated SCAN CRITERIA MET
[2024-06-10 18:50] LABS: BNP,B-Type NATRIURETIC PEPTIDE 231.5 pg/mL (0-100)
[2024-06-10 19:05] LABS: Eosinophil 4 % (0-5); Lymphocyte 35 % (19-41); Monocyte 10 % (0-10); Neutrophil-Band 5 % (0-5); Neutrophil-Segmented 46 % (47-70); Platelet Estimate MKD DEC (ADEQ); Total Cells Counted 100 (MANUAL DIFF)
[2024-06-10 19:06] LABS: Anisocytosis 2+; Hypochromasia 1+; Platelet Morphology LARGE
[2024-06-10 19:07] LABS: Polychromasia RARE; Scan Smear per Review Criteria MANUAL DIFF
[2024-06-10 19:08] LABS: Atypical Lymphocyte 3+ %
[2024-06-10] MEDS: Azithromycin 250 MG Tablet 500 MG PO (21:42)
[2024-06-11 09:44] LABS: Pathologist Review Reviewed
== END 2024-06-10 21:45 | disposition home or self-care (01) ==
PROVIDERS: Emergency Provider Emergency Medicine; PCP Internal Medicine; Visit Provider Emergency Medicine
DX: I95.9 Hypotension, unspecified (principal); J44.9 Chronic obstructive pulmonary disease, unspecified; E11.9 Type 2 diabetes mellitus without complications; R05.9 Cough, unspecified; R06.00 Dyspnea, unspecified; N17.9 Acute kidney failure, unspecified; I10 Essential (primary) hypertension; R00.1 Bradycardia, unspecified; Z79.01 Long term (current) use of anticoagulants; Z79.84 Long term (current) use of oral hypoglycemic drugs; Z79.85 Long-term (current) use of injectable non-insulin antidiabetic drugs; Z79.899 Other long term (current) drug therapy; Z87.891 Personal history of nicotine dependence
CPT/HCPCS: 71046; 80048; 83880; 85025; 93005; 94640; 99284; A4216